=== PATIENT | female | born 1955 | race Caucasian/White ===

== ENCOUNTER 2017-02-21 23:44 | Inpatient (IN) ==
[2017-02-22] MEDS ORDERED: *HR* Morphine 2 MG/ML SYRINGE IVP PRN ×2 (03:51→13:45)
[2017-02-22] MEDS ORDERED: Ipratropium/Albuterol Neb 3 ML IH PRN (03:51)
[2017-02-22] MEDS ORDERED: Dextrose Gel 15 GM/37.5 ML TUBE PO PRN ×2 (03:52)
[2017-02-22] MEDS ORDERED: *HR* Dextrose 50 % in Water (Syg) 50 ML SYRINGE IVP PRN (03:52)
[2017-02-22] MEDS ORDERED: D5% in Water 1,000 ML IVC PRN (03:52)
[2017-02-22] MEDS ORDERED: Ondansetron 4 MG/2 ML VIAL IVP PRN (03:56)
[2017-02-22] MEDS ORDERED: Acetaminophen 325 MG TABLET PO PRN (03:56)
[2017-02-22] MEDS ORDERED: Naloxone 0.4 MG/ML INJ IVP PRN (03:56)
--- NOTE | 2017-02-22 04:01 | Internal Med History&Physical ---
Date of Encounter: 02/22/17 Time of Encounter: 03:59 Assessment and Plan (1) PRES (posterior reversible encephalopathy syndrome) Current visit: Yes Status: Acute Acute encephalopathy likely secondary to pres and UTI Order MRI of the brain, tight blood pressure control Omeprazole for GI prophylaxis and subcutaneous heparin for DVT prophylaxis. Patient will be admitted as inpatient, expected stay more than 20 minutes. Full code. Time spent on this admission 40 minutes (2) Seizure Current visit: Yes Status: Acute Resume [facility] consult Fall and seizure precautions Ativan as needed (3) Accelerated hypertension Current visit: Yes Status: Acute Continue amlodipine and propanolol, start hydralazine IV as needed (4) Diabetes Current visit: Yes Status: Acute Insulin sliding scale Qualifiers: Diabetes mellitus type: type 2 Diabetes mellitus complication status: without complication Diabetes mellitus terminal operations manager insulin use: with senior care use Qualified Code(s): E11.9 - Type 2 diabetes mellitus without complications ; Z79.4 - superintendent terminal (current) use of insulin; Z79.4 - superintendent terminal (current) use of insulin; Z79.4 - superintendent terminal (current) use of insulin; Z79.4 - superintendent terminal ( current) use of insulin (5) Chronic kidney disease, stage III (moderate) Current visit: Yes Status: Acute At baseline Continue Lasix (6) Delirium due to general medical condition Current visit: No Status: Acute (7) UTI (urinary tract infection) Current visit: No Status: Acute Start Rocephin Await culture report Qualifiers: Urinary tract infection type: acute cystitis Hematuria presence: without hematuria Qualified Code(s): N30.00 - Acute cystitis without hematuria Internal Medicine - H&P: HPI Chief complaint: Altered mental status and seizures Admitted From: Emergency Dept History of present illness: Ms. Becker is a 61 year old female with a past medical history of seizure disorder, press syndrome, diabetes type 2 insulin-dependent, came from [facility] where she was seen for confusion, apparently the patient became combative after having 3 seizures the first one very elderly in the morning witnessed by her . She is a very poor historian and does not remember what happened but is complaining of excruciating pain in the left hip. White blood cell count is 20.1 potassium 5.1 creatinine 1.97 glucose 152, urine analysis shows 50 white blood cells and moderate bacteria. CT scan of the head shows possible posterior reversible encephalopathy syndrome or acute edema, these would need to be confirmed with an MRI. During tox screen was positive for opiates oxycodone and benzodiazepines. Blood pressure was 167/97. Has been is not able to explain what exactly happened to the patient earlier today. Past Med Surg Social Fam HX - Past Medical History Medical history: arthritis, diabetes (Insulin-dependent), hyperlipidemia, hypertension, kidney stones, renal disease (Chronic kidney disease stage III), seizures, other (Nephrolithiasis, pres syndrome, hypertriglyceridemia, hyperlipidemia) Psychiatric history: no psych history - Past Surgical History Surgical History: cholecystectomy, other - Social History Smoking Status: Never smoker Smokeless Tobacco Status: No Alcohol use: none Drug use: none - Family History Brother Hx Family Endocrine Disorder: Yes (DM) Hx Family Neurologic Disorders: Yes (seizures) - Additional Family History Additional family history: Denies any family history Internal Medicine - H&P: Meds Amlodipine Besylate 5 mg PO DAILY 02/21/17 [History] Atorvastatin Calcium [Lipitor] 20 mg PO HS 02/21/17 [History] Furosemide [Lasix] 20 mg PO DAILY 02/21/17 [History] Gabapentin [Neurontin] 100 mg PO TID 02/21/17 [History] Gemfibrozil [Lopid] 600 mg PO BID 02/21/17 [History] HYDROcodone/Acet 10/325 mg [[place] 10-325 mg] 1 tab PO Q6HR 02/21/17 [History] Humalog 02/21/17 [History] Insulin Glargine,Hum.rec.anlog [Lantus Solostar] 70 unit SQ HS 02/21/17 [History ] LevETIRAcetam [Keppra] 1,000 mg PO BID 02/21/17 [History] OxyCODONE/APAP 5/325 [Percocet 5/325 MG] 1 tab PO Q6H 02/21/17 [History] Propranolol HCl 40 mg PO BID 02/21/17 [History] Ropinirole HCl [Requip] 1 mg PO HS 02/21/17 [History] Sennosides/Docusate Sodium [Stool Softener Tablet] 1 each PO BID 02/21/17 [ History] Sodium Bicarbonate 1,300 mg PO BID 02/21/17 [History] Vitamin B Complex Vit C No.4 [Super B Complex] 1 tab PO DAILY 02/21/17 [History] 3 Allergy/AdvReac Type Severity Reaction Status Date / Time No Known Allergies Allergy Verified 12/15/14 07:03 All Systems PM: A 10-system review of systems was performed and is negative for pertinent findings except as documented above in the HPI. Review of systems: Left hip pain, no shortness of breath, chest pain. Very weak. Other systems out of the 10 review liver negative. The patient does not remember falling - Constitutional Vitals: Temp Pulse Resp BP Pulse Ox 98.3 F 88 15 135/88 93 02/22/17 03:15 02/22/17 03:15 02/22/17 03:15 02/22/17 03:15 02/22/17 03:15 General appearance: Present: A&O X 3, morbidly obese - Head Head exam: Present: atraumatic, normocephalic - Eye Eye exam: Present: PERRL, conjuntiva pink, sclera anicteric Pupils: Present: PERRL - Neck Neck exam general surgery: Present: supple, trachea midline. Absent: lymphadenopathy Additional comments: Strabismus - Respiratory Respiratory exam: Present: CTAB. Absent: accessory muscle use, rales, rhonchi, wheezes - Cardiovascular Cardiovascular exam: Present: RRR, +S1, +S2. Absent: diastolic murmur, gallop, rubs, systolic murmur - GI/Abdominal GI/Abdominal exam: Present: distended, normal bowel sounds, soft, no peritoneal signs. Absent: tenderness - Extremities Exam Extremities exam: Present: warm, radial pulses palpable and symmetrical. Absent : calf tenderness, cyanotic, pedal edema - Neurological Exam Neurological exam: Present: CN II-XII intact, oriented X3, no focal deficits. Absent: pronater drift, facial droop, speech deficit - Skin Skin exam: Present: dry, intact
[2017-02-22] MEDS: *HR* HYDROcodone/Acet 10/325 mg TABLET PO PRN ×4 (04:37→22:48)
[2017-02-22] MEDS: *HR* LORazepam 2 MG/ML VIAL IVP PRN ×3 (04:37→23:55)
[2017-02-22] MEDS: cefTRIAXone 1,000 MG in Water for inj. (sterile) 20 ML 10 ML IVP SCH ×2 (04:37→20:45)
[2017-02-22] MEDS: Insulin LISPRO 300 UNITS/3 ML VIAL SQ SCH ×5 (04:56→21:24)
[2017-02-22] MEDS: *HR* Heparin 5,000 UNIT/ML VIAL SQ SCH ×2 (05:55→18:11)
[2017-02-22 08:20] LABS: Hematocrit 33.9 % (35.3-44.9); Hemoglobin 11.1 g/dL (11.5-15.4); Mean Corpuscular HGB Conc 32.7 g/dL (31.6-35.5); Mean Corpuscular Hemoglobin 28.3 pg (28.0-33.3); Mean Corpuscular Volume 86.5 fL (83.0-100.0); Mean Platelet Volume 11.7 fL (9.4-12.4); Platelet Count 324 K/mcL (140-400); Red Blood Count 3.92 M/mcL (3.82-4.97); Red Cell Distribution Width 17.3 % (11.5-14.5)
[2017-02-22] MEDS: Gabapentin 100 MG CAPSULE PO SCH ×3 (09:02→20:42)
[2017-02-22] MEDS: levETIRAcetam 250 MG TABLET PO SCH ×2 (09:02→20:42)
[2017-02-22] MEDS: amLODIPine 5 MG TABLET PO SCH (09:02)
[2017-02-22] MEDS: Furosemide 20 MG TABLET PO SCH (09:02)
--- NOTE | 2017-02-22 10:24 | Neurology - Consult Note ---
<Martine Ferrari - Last Filed: 02/22/17 10:19> Date of Encounter: 02/22/17 Time of Encounter: 10:19 Assessment and Plan (1) Seizure Current Visit: Yes Status: Acute multiple witnessed seizures after arrival to hospital. CT head showed bilateral encephalomalacia, with loss of reveles white matter differentiation, possible PRES syndrome vs. acute edema. Also shoed left occipital encephalomalacia. Etiology likely multifactorial secondary to missing medication doses, complicated by PRES. Plan: MRI brain pending resume Keppra fall and seizure precautions PRN benzodiazepine continue blood pressure control. (2) PRES (posterior reversible encephalopathy syndrome) Current Visit: Yes Status: Acute continue blood pressure control. History of Present Illness Chief complaint: seizure HPI: Ms. Becker is a 61 year old female with PMHx of seizure disorder, PRES syndrome, DM2, CKD. Patient arrived to [facility] yesterday as a transfer from [facility]. She was originally brought to the ER for confusion. Early that day, she had missed two doses of her Keppra. Throughout the day, she became progressively more confused and missed her blood pressure medications as well. patient was sitting in the chair and fell off the chair onto the floor. she was also unresponsive for some time. After arrival to the hospital, she had multiple witnessed seizures. patient today is alert and oriented x2 (person and place). she denies nausea, vomiting, diarrhea, fever, chills, chest pain, shortness of breath. she does report continued chronic left hip pain, and denies any further problems today. Past Med Surg Social Fam HX - Past Medical History Medical history: arthritis, diabetes (Insulin-dependent), hyperlipidemia, hypertension, kidney stones, renal disease (Chronic kidney disease stage III), seizures, other (Nephrolithiasis, pres syndrome, hypertriglyceridemia, hyperlipidemia) Psychiatric history: no psych history - Past Surgical History Surgical History: cholecystectomy, other - Social History Smoking Status: Never smoker Smokeless Tobacco Status: No Alcohol use: none Drug use: none - Family History Brother Hx Family Endocrine Disorder: Yes (DM) Hx Family Neurologic Disorders: Yes (seizures) Medications and Allergies Amlodipine Besylate 5 mg PO DAILY 02/21/17 [History] Atorvastatin Calcium [Lipitor] 20 mg PO HS 02/21/17 [History] Furosemide [Lasix] 20 mg PO DAILY 02/21/17 [History] Gabapentin [Neurontin] 100 mg PO TID 02/21/17 [History] Gemfibrozil [Lopid] 600 mg PO BID 02/21/17 [History] HYDROcodone/Acet 10/325 mg [[place] 10-325 mg] 1 tab PO Q6HR 02/21/17 [History] Insulin Glargine,Hum.rec.anlog [Lantus Solostar] 70 unit SQ HS 02/21/17 [History ] Insulin LISPRO [Humalog] 2 - 10 unit SQ TIDWM 02/21/17 [History] LevETIRAcetam [Keppra] 1,000 mg PO BID 02/21/17 [History] OxyCODONE/APAP 5/325 [Percocet 5/325 MG] 1 tab PO Q6H 02/21/17 [History] Propranolol HCl 40 mg PO BID 02/21/17 [History] Ropinirole HCl [Requip] 1 mg PO HS 02/21/17 [History] Sennosides/Docusate Sodium [Stool Softener Tablet] 1 each PO BID 02/21/17 [ History] Sodium Bicarbonate 1,300 mg PO BID 02/21/17 [History] Vitamin B Complex Vit C No.4 [Super B Complex] 1 tab PO DAILY 02/21/17 [History] Aspirin Enteric Coated [Aspirin EC] 81 mg PO DAILY 02/22/17 [History] 3 Allergy/AdvReac Type Severity Reaction Status Date / Time No Known Allergies Allergy Verified 12/15/14 07:03 All Systems: A 10-system review of systems was performed and is negative for pertinent findings except as documented above in the HPI. - Constitutional Constitutional ROS IM: as per HPI Physical Examination - Vital Signs Vital Signs: Initial Vital Signs Temp Pulse Resp BP Pulse Ox 97.9 F 88 16 158/80 97 02/22/17 01:39 02/22/17 01:39 02/22/17 01:39 02/22/17 01:39 02/22/17 01:39 - Constitutional General appearance: comfortable, other (obese, no acute distress. ) - Neurologic Sensorimotor examination: intact Motor examination - right side: 3/5: deltoids, biceps, thread pulling machine attendant, hip flexors Motor examination - left side: 3/5: deltoids, biceps, hip flexors, thread pulling machine attendant Detailed sensory examination: intact Reflexes: Brachioradialis: 1+, Patella: 1+, Achilles: 1+ Mental Status Examination: awake, alert, oriented to person, oriented to place, follows commands appropriately, no aphasia, lethargic Cranial nerve examination: PERRL Results - Laboratory Findings CBC and BMP: 02/22/17 07:14 Abnormal lab findings: Abnormal lab results WBC 19.0 K/mcL (4.3-11.1) H 02/22/17 07:14 Hgb 11.1 g/dL (11.5-15.4) L 02/22/17 07:14 Hct 33.9 % (35.3-44.9) L 02/22/17 07:14 RDW 17.3 % (11.5-14.5) H 02/22/17 07:14 Consult Discharge Plan - Plan Referrals: NONE,PCP [Primary Care Provider] - <Bridger Kimball - Last Filed: 02/22/17 17:25> Date of Encounter: 02/22/17 Time of Encounter: 17:10 Assessment and Plan (1) Seizure Current Visit: Yes Status: Acute It seems that this patient is approaching her normal baseline. I agree murmur likely dealing with breakthrough seizures secondary to the urinary tract infection as well as medical noncompliance she has missed a few doses of her Keppra.. MRI scan of the brain although abnormal does not reveal any changes in comparison to the previous MRI study. I see no metabolic derangement or evidence of central nervous system infection. No evidence of an acute vascular process. I would recommend simply resuming her Keppra at 1000 mg twice a day. Also recommend urology assessment she is here. My pleasure to follow-up with her in my office as an outpatient after she is discharged. History of Present Illness HPI: Clemente reviewed, patient was seen and examined independently. Case was discussed with Dr. Ferrari. In addition to the history mentioned above, the patient has a history of recurrent urinary tract infections. It seems that she also has a history of medical noncompliance, her gives the majority of the history. Apparently she has missed follow-ups with a neurologist as well as with a urologist. Her states that her mental status is improved but not quite back to her normal baseline. MRI scan of the brain completed today reveals encephalomalacia in the parietal lobes bilaterally as well as the left occipital lobe. This is unchanged in comparison to previous brain scans. Her seizure activity generally consist of turning her head toward the left with eyes deviated toward the left. states that she jerks a few times. She has had breakthrough seizures in the past associated with urinary tract infections. All Systems: A 10-system review of systems was performed and is negative for pertinent findings except as documented above in the HPI. Review of Systems: 10 point review of systems is consistent with a history of present illness otherwise negative. Physical Examination - Vital Signs Vital Signs: Initial Vital Signs Temp Pulse Resp BP Pulse Ox 97.9 F 88 16 158/80 97 02/22/17 01:39 02/22/17 01:39 02/22/17 01:39 02/22/17 01:39 02/22/17 01:39 - Constitutional General appearance: other - Neurologic Detailed motor examination: other (No focal or lateralized deficit of the upper extremities. She does have giveaway weakness of the left lower extremity secondary to chronic left hip problems. She has normal strength bulk and tone of the right lower extremity. 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.) Results - Laboratory Findings CBC and BMP: 02/22/17 07:14 02/22/17 09:44 Abnormal lab findings: Abnormal lab results WBC 19.0 K/mcL (4.3-11.1) H 02/22/17 07:14 Hgb 11.1 g/dL (11.5-15.4) L 02/22/17 07:14 Hct 33.9 % (35.3-44.9) L 02/22/17 07:14 RDW 17.3 % (11.5-14.5) H 02/22/17 07:14 Chloride 111 mEq/L (98-107) H 02/22/17 09:44 Carbon Dioxide 22 mEq/L (23-29) L 02/22/17 09:44 BUN 41 mg/dL (6-20) H 02/22/17 09:44 Creatinine 1.63 mg/dL (0.60-1.20) H 02/22/17 09:44 Est GFR ( Amer) 39 (> 60) L 02/22/17 09:44 Est GFR (Non-Af Amer) 32 (> 60) L 02/22/17 09:44 Glucose 155 mg/dL (70-105) H 02/22/17 09:44 Calculated Osmolality 307 (280-300) H 02/22/17 09:44
[2017-02-22 11:40] LABS: Calcium 9.6 mg/dL (8.6-10.3); Potassium 3.7 mEq/L (3.5-5.1)
[2017-02-22] MEDS: Saline Nasal Spray 44 ML BOTTLE NS PRN ×4 (14:31→23:02)
--- NOTE | 2017-02-22 19:06 | Event Note ---
Date of Encounter: 02/22/17 Time of Encounter: 14:00 61 y/o female with hx seizures. Seen and examined at bedside. Say she feels okay and wants to be left alone. at bedside and says mentation improved but not back to baseline 1. Encephalopathy: in the setting of breakthrough seizures and UTI. Mentation improved but not back to baseline per . Plan as noted below. 2. Seizure disorder: per hx. Multiple witnessed seizures after arrival to hospital. CT head showed bilateral encephalomalacia, with loss of reveles white matter differentiation, possible PRES syndrome vs. acute edema. Evaluated by Neurology who suspects multifactorial secondary to missing medication doses, complicated by PRES. Cont Keppra, PRN benzodiazepine, Brain MRI pending 3. UTI: outside hospital UA indicative of UTI. Cont IV rocephin. Follow urine cx 4. Leukocytosis: WBC 19K, possibly reactive. UA indicative of UTI however does not appear acute or toxic. No tachycardia, no hypotension. Lactic acid, blood cx pending. Cont IV ATB for UTI as noted above
[2017-02-22] MEDS: rOPINIRole 1 MG TABLET PO SCH (20:40)
[2017-02-22] MEDS: Insulin DETEMIR 100 UNIT/ML X5UNITS SQ SCH (22:49)
[2017-02-23] MEDS ORDERED: *HR* OxyCODONE/APAP 5/325 TABLET PO ONE (03:36)
[2017-02-23] MEDS: Saline Nasal Spray 44 ML BOTTLE NS PRN ×2 (04:25→18:47)
[2017-02-23] MEDS: *HR* Heparin 5,000 UNIT/ML VIAL SQ SCH ×2 (05:48→18:47)
[2017-02-23 06:47] LABS: Hematocrit 30.1 % (35.3-44.9); Mean Corpuscular HGB Conc 31.2 g/dL (31.6-35.5); Mean Corpuscular Hemoglobin 27.9 pg (28.0-33.3); Mean Corpuscular Volume 89.3 fL (83.0-100.0); Mean Platelet Volume 11.5 fL (9.4-12.4); Platelet Count 262 K/mcL (140-400); Red Blood Count 3.37 M/mcL (3.82-4.97); Red Cell Distribution Width 17.4 % (11.5-14.5)
[2017-02-23 06:52] LABS: Hemoglobin 9.4 g/dL (11.5-15.4)
[2017-02-23 06:56] LABS: Calcium 9.2 mg/dL (8.6-10.3)
[2017-02-23] MEDS: Insulin LISPRO 300 UNITS/3 ML VIAL SQ SCH ×4 (08:41→20:35)
[2017-02-23] MEDS: Furosemide 20 MG TABLET PO SCH (08:42)
[2017-02-23] MEDS: amLODIPine 5 MG TABLET PO SCH (08:42)
[2017-02-23] MEDS: Gabapentin 100 MG CAPSULE PO SCH ×3 (08:42→20:31)
[2017-02-23] MEDS: levETIRAcetam 250 MG TABLET PO SCH ×2 (08:42→20:31)
[2017-02-23] MEDS: *HR* HYDROcodone/Acet 10/325 mg TABLET PO PRN ×2 (08:43→13:25)
--- NOTE | 2017-02-23 14:15 | Internal Med Progress Note ---
Date of Encounter: 02/23/17 Time of Encounter: 14:00 - Assessment and plan (1) Acute encephalopathy Current Visit: Yes Status: Acute Assessment and plan: seems to be improving signifcantly. possibly from UTI vs PRES vs seizure. c/w abx. c/w Keppra. MRI brain noted. neuro checks (2) Seizure Current Visit: Yes Status: Acute Assessment and plan: On Keppra. No seizure activities noted while on nursing floor. (3) PRES (posterior reversible encephalopathy syndrome) Current Visit: Yes Status: Acute Assessment and plan: Neurology consult. c/w neuro checks. BP control (4) Accelerated hypertension Current Visit: Yes Status: Acute Assessment and plan: c/w BP control. BP seems to be controlled now. c/w inderal, lasix, novasc. (5) Diabetes Current Visit: Yes Status: Acute Assessment and plan: c/w levemir 70 units HS. c/w SSI. c/w accu-cheks Qualifiers: Diabetes mellitus type: type 2 Diabetes mellitus complication status: without complication Diabetes mellitus terminal carman insulin use: with senior care use Qualified Code(s): E11.9 - Type 2 diabetes mellitus without complications ; Z79.4 - superintendent terminal (current) use of insulin; Z79.4 - skilled nursing (current) use of insulin; Z79.4 - superintendent terminal (current) use of insulin; Z79.4 - superintendent terminal ( current) use of insulin (6) Chronic kidney disease, stage III (moderate) Current Visit: Yes Status: Acute Assessment and plan: stable. around baseline (7) DVT prophylaxis Current Visit: Yes Status: Acute Assessment and plan: heparin - Subjective Interval history: No acute events. Feels well. Confusion seems to be clearing. Afebrile. BP is stable - Constitutional Vitals: Temp Pulse Resp BP Pulse Ox 98.2 F 68 20 115/72 96 02/23/17 12:04 02/23/17 12:04 02/23/17 12:04 02/23/17 12:04 02/23/17 12:04 General appearance: Present: A&O X 3, morbidly obese Exam: GEN: NAD. A/O x2. Was able to tell me name, place, month but thought it was 2016 CVS: RRR. S1, S2, No m/r/g RESP: CTAB ABD: Soft, NT, ND, +BS EXT: No edema. 2+ DP NEURO: Nonfocal Internal Medicine: Result - Labs CBC & Chem 7: 02/23/17 06:25 02/23/17 06:25 Labs: Short CBC 02/23/17 Range/Units 06:25 WBC 11.8 H (4.3-11.1) K/mcL Hgb 9.4 L D (11.5-15.4) g/dL Hct 30.1 L (35.3-44.9) % Plt Count 262 (140-400) K/mcL BMP 02/23/17 06:25 Sodium 143 Potassium 4.0 Chloride 107 Carbon Dioxide 23 BUN 49 H Creatinine 1.94 H Glucose 201 H Calcium 9.2 - Impressions Impressions Brain MRI 02/22/17 03:52 IMPRESSION: 1. Unchanged chronic encephalomalacia in the bilateral parietal and left occipital lobes. 2. Severely motion degraded MRI without obvious acute abnormality. D/ / 02/22/2017 14:35:09 Jose Cortez MD / sathya Interpreting Provider: Jose Cortez MD Consult Discharge Plan - Plan Referrals: NONE,PCP [Primary Care Provider] -
--- NOTE | 2017-02-23 14:46 | Neurology Progress Note ---
Date of Encounter: 02/23/17 Time of Encounter: 14:44 Assessment and Plan (1) Seizure Current Visit: Yes Status: Acute Breakthrough seizure. Compliance with antiepileptic seizure medications was stressed. She should be taking levetiracetam 1000 mg twice a day. Seizure precautions were discussed. She does not drive. They intend to follow-up with a neurologist in the [facility] program. I will reevaluate her at your request. Subjective Interval history: The chart was reviewed, the patient was seen and examined. Her is present with her. They both agree that she is back to her baseline from a cognitive perspective. She has not had any further seizure activity overnight. WBCs have declined significantly. I continue to suspect breakthrough seizure secondary to noncompliance along with urinary tract infection. Objective - Constitutional Vitals: Temp Pulse Resp BP Pulse Ox 98.2 F 68 20 115/72 96 02/23/17 12:04 02/23/17 12:04 02/23/17 12:04 02/23/17 12:04 02/23/17 12:04 - Neurological Exam Sensorimotor examination: Present: intact Motor Examination: Present: other (No focal or lateralized deficit of the upper extremities. She does have giveaway weakness of the left lower extremity secondary to chronic left hip problems. She has normal strength bulk and tone of the right lower extremity. 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.) Results - Laboratory Findings CBC and BMP: 02/23/17 06:25 02/23/17 06:25 Abnormal lab findings: Abnormal lab results WBC 11.8 K/mcL (4.3-11.1) H 02/23/17 06:25 RBC 3.37 M/mcL (3.82-4.97) L 02/23/17 06:25 Hgb 9.4 g/dL (11.5-15.4) L D 02/23/17 06:25 Hct 30.1 % (35.3-44.9) L 02/23/17 06:25 MCH 27.9 pg (28.0-33.3) L 02/23/17 06:25 MCHC 31.2 g/dL (31.6-35.5) L 02/23/17 06:25 RDW 17.4 % (11.5-14.5) H 02/23/17 06:25 BUN 49 mg/dL (6-20) H 02/23/17 06:25 Creatinine 1.94 mg/dL (0.60-1.20) H 02/23/17 06:25 Est GFR ( Amer) 32 (> 60) L 02/23/17 06:25 Est GFR (Non-Af Amer) 26 (> 60) L 02/23/17 06:25 Glucose 201 mg/dL (70-105) H 02/23/17 06:25 POC Glucose 142 (58-89) H 02/22/17 21:03 Calculated Osmolality 315 (280-300) H 02/23/17 06:25 Consult Discharge Plan - Plan Referrals: NONE,PCP [Primary Care Provider] -
[2017-02-23] MEDS: *HR* HYDROcodone/Acet 10/325 mg TABLET PO SCH ×3 (16:05→23:57)
[2017-02-23] MEDS: rOPINIRole 1 MG TABLET PO SCH (20:30)
[2017-02-23] MEDS: cefTRIAXone 1,000 MG in Water for inj. (sterile) 20 ML 10 ML IVP SCH (20:32)
[2017-02-23] MEDS: Insulin DETEMIR 100 UNIT/ML X5UNITS SQ SCH (20:36)
[2017-02-23] MEDS: *HR* LORazepam 2 MG/ML VIAL IVP PRN (22:15)
[2017-02-24] MEDS: *HR* LORazepam 2 MG/ML VIAL IVP PRN (02:26)
[2017-02-24] MEDS: *HR* HYDROcodone/Acet 10/325 mg TABLET PO SCH ×3 (04:48→12:33)
[2017-02-24 04:54] LABS: Hematocrit 31.1 % (35.3-44.9); Hemoglobin 9.6 g/dL (11.5-15.4); Immature Granulocytes % 0.4 % (0-4); Lymphocytes % 38.8 %; Mean Corpuscular HGB Conc 30.9 g/dL (31.6-35.5); Mean Corpuscular Hemoglobin 28.1 pg (28.0-33.3); Mean Corpuscular Volume 90.9 fL (83.0-100.0); Mean Platelet Volume 11.9 fL (9.4-12.4); Monocytes % 6.2 %; Platelet Count 269 K/mcL (140-400); Red Blood Count 3.42 M/mcL (3.82-4.97); Red Cell Distribution Width 17.3 % (11.5-14.5); Segmented Neutrophils % 51.7 %
[2017-02-24 04:55] LABS: Basophils % 0.2 %; Eosinophils # 0.3 K/mcL (0.0-0.6); Eosinophils % 2.7 %; Lymphocytes # 4.2 K/mcL (0.6-4.6); Monocytes # 0.7 K/mcL (0.0-1.3); Neutrophils # 5.6 K/mcL (1.6-8.9)
[2017-02-24 05:18] LABS: Potassium 3.8 mEq/L (3.5-5.1)
[2017-02-24] MEDS: *HR* Heparin 5,000 UNIT/ML VIAL SQ SCH (06:10)
[2017-02-24 06:45] VITALS: BP 114/74
[2017-02-24] MEDS: Insulin LISPRO 300 UNITS/3 ML VIAL SQ SCH ×2 (09:00→12:33)
[2017-02-24] MEDS: levETIRAcetam 250 MG TABLET PO SCH (09:01)
[2017-02-24] MEDS: amLODIPine 5 MG TABLET PO SCH (09:02)
[2017-02-24] MEDS: Furosemide 20 MG TABLET PO SCH (09:02)
[2017-02-24] MEDS: Gabapentin 100 MG CAPSULE PO SCH (09:02)
--- NOTE | 2017-02-24 09:28 | Discharge Summary ---
Date of Encounter: 02/24/17 Time of Encounter: 09:26 - Discharge Diagnosis (1) Acute encephalopathy Priority: Primary Status: Acute (2) Seizure Priority: Primary Status: Acute (3) PRES (posterior reversible encephalopathy syndrome) Priority: Primary Status: Acute (4) Accelerated hypertension Priority: Primary Status: Acute (5) Diabetes Priority: Secondary Status: Acute Qualifiers: Diabetes mellitus type: type 2 Diabetes mellitus complication status: without complication Diabetes mellitus [employer] insulin use: with shelter use Qualified Code(s): E11.9 - Type 2 diabetes mellitus without complications ; 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; Z79.4 - jail (current) use of insulin; Z79.4 - jail (current) use of insulin; 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 (6) Chronic kidney disease, stage III (moderate) Priority: Secondary Status: Acute - Discharge Medications Home Medications: Amlodipine Besylate 5 mg PO DAILY 02/21/17 [History] Atorvastatin Calcium [Lipitor] 20 mg PO HS 02/21/17 [History] Furosemide [Lasix] 20 mg PO DAILY 02/21/17 [History] Gabapentin [Neurontin] 100 mg PO TID 02/21/17 [History] Gemfibrozil [Lopid] 600 mg PO BID 02/21/17 [History] HYDROcodone/Acet 10/325 mg [Velpen 10-325 mg] 1 tab PO Q6HR 02/21/17 [History] Insulin Glargine,Hum.rec.anlog [Lantus Solostar] 70 unit SQ HS 02/21/17 [History ] Insulin LISPRO [Humalog] 2 - 10 unit SQ TIDWM 02/21/17 [History] LevETIRAcetam [Keppra] 1,000 mg PO BID 02/21/17 [History] OxyCODONE/APAP 5/325 [Percocet 5/325 MG] 1 tab PO Q6H 02/21/17 [History] Propranolol HCl 40 mg PO BID 02/21/17 [History] Ropinirole HCl [Requip] 1 mg PO HS 02/21/17 [History] Sennosides/Docusate Sodium [Stool Softener Tablet] 1 each PO BID 02/21/17 [ History] Sodium Bicarbonate 1,300 mg PO BID 02/21/17 [History] Vitamin B Complex Vit C No.4 [Super B Complex] 1 tab PO DAILY 02/21/17 [History] Aspirin Enteric Coated [Aspirin EC] 81 mg PO DAILY 02/22/17 [History] Allergies/Adverse Reactions: 3 Allergy/AdvReac Type Severity Reaction Status Date / Time No Known Allergies Allergy Verified 12/15/14 07:03 Procedures/tests Complete & Pending: Procedures Performed prior 72 hours Category Date Time Status MR head/brain wo con [MR] Routine MRI 02/22/17 03:52 Completed Date of admission: 02/22/17 03:56 Primary care physician: PCP NONE Consults: 02/22/17 03:55 Consult to Neurology [CONS] Routine Consulting Provider: [facility] Reason for Consult: seizures Call Completed: No 02/23/17 13:49 Consult to Physical Therapy [CONS] Routine Comment: Evaluate, develop and implement POC Reason for Consult: PT eval - Patient Status Disposition: Home, Self-Care Condition: Fair Overall status at discharge: patient is progressing back to baseline - Discharge Instructions Instructions: Diabetes Mellitus Type 2 in Adults (DC), Hepatic Encephalopathy ( DC) Follow Up With: NONE,PCP [Primary Care Provider] - (We have requested an appt with Family Medicine. They will call you within 24 hours. Otherwise you may call [phone] for assistance with finding a primary care. ) - Diet and Activity Activity: resume usual activities as tolerated Diet: diabetic diet Hospital course: Ms. Becker is a 61 year old female with a past medical history of seizure disorder, press syndrome, diabetes type 2 insulin-dependent, came from [facility] where she was seen for confusion with suspected seizure activities noted by her as well by the ED staff. White blood cell count is 20.1 potassium 5.1 creatinine 1.97 glucose 152, urine analysis shows 50 white blood cells and moderate bacteria. CT scan of the head shows possible posterior reversible encephalopathy syndrome . MRI of brain followed showed unchanged chronic encephalomalacia in the bilateral parietal and left occipital lobes. She was admitted to the hospitalist service with a consult to neurology suspected this could be PRES. they continued her on her antiseizure medication and recommended blood pressure control. During tox screen was positive for opiates oxycodone and benzodiazepines. She did well and she was hospitalized and was back to baseline. She will follow up with neurology and her primary care physician. She was discharged on 02/24/2017. - Time Spent with Patient Total time spent providing and/or coordinating discharge services: Greater than 30 minutes - Constitutional Vitals: Temp Pulse Resp BP Pulse Ox 98 F 65 16 114/74 96 02/24/17 06:43 02/24/17 06:43 02/24/17 06:43 02/24/17 06:43 02/24/17 06:43 General appearance: Present: A&O X 3, morbidly obese Exam: GEN: NAD CVS: RRR. S1, S2, No m/r/g RESP: CTAB ABD: Soft, NT, ND, +BS EXT: No edema. 2+ DP. No rashes NEURO: Nonfocal
== END 2017-02-24 12:42 | disposition home or self-care (01) | DRG 463 ==
LOC: 3BNU
PROVIDERS: ADMIT Internal Medicine; ATTEND Registered Nurse

== ENCOUNTER 2019-01-01 05:40 | Inpatient (IN) ==
[2019-01-01] MEDS ORDERED: Acetaminophen 325 MG TABLET PO PRN (11:08)
[2019-01-01] MEDS ORDERED: Naloxone 0.4 MG/ML INJ IVP PRN (11:08)
[2019-01-01] MEDS ORDERED: *HR* Dextrose 50 % in Water (Syg) 50 ML SYRINGE IVP PRN (11:19)
[2019-01-01] MEDS ORDERED: Dextrose Gel 15 GM/37.5 ML TUBE PO PRN ×2 (11:19)
[2019-01-01] MEDS ORDERED: D5% in Water 1,000 ML IVC PRN (11:19)
[2019-01-01] MEDS: Insulin LISPRO 300 UNITS/3 ML VIAL SQ SCH ×3 (12:36→20:51)
[2019-01-01] MEDS: 0.9 % Sodium Chloride 1,000 ML IVC SCH (12:37)
[2019-01-01] MEDS ORDERED: Aminoglycoside Consult 1 EACH MC ONE (13:29)
[2019-01-01] MEDS: Piperacillin/Tazobactam 3.375 GM in 0.9 % Sodium Chloride Mini Bag 100 ML IVPB SCH (17:08)
[2019-01-01 18:26] LABS: Adenovirus Not Detected (Not Detect); Bordetella Pertussis Not Detected (Not Detect); Chlamydophila pneumoniae Not Detected (Not Detect); Coronavirus 229E Not Detected (Not Detect); Coronavirus HKU1 Not Detected (Not Detect); Coronavirus NL63 Not Detected (Not Detect); Coronavirus OC43 Not Detected (Not Detect); Human Metapneumovirus Not Detected (Not Detect); Human Rhinovirus/Enterovirus DETECTED (Not Detect); Influenza A Subtype 2009 H1 Not Detected (Not Detect); Influenza A Untypeable Not Detected (Not Detect); Influenza B Not Detected (Not Detect); Mycoplasma pneumoniae Not Detected (Not Detect); Parainfluenza Virus 1 Not Detected (Not Detect); Parainfluenza Virus 2 Not Detected (Not Detect); Parainfluenza Virus 3 Not Detected (Not Detect); Parainfluenza Virus 4 Not Detected (Not Detect); Respiratory Syncytial Virus Not Detected (Not Detect)
[2019-01-01] MEDS: Insulin DETEMIR 100 UNIT/ML X5UNITS SQ SCH (20:52)
[2019-01-02] MEDS ORDERED: Levalbuterol Neb 1.25 MG/3 ML IH ONE (00:42)
[2019-01-02] MEDS ORDERED: Acetaminophen IV 1,000 MG/100 ML INFUS..BTL IVPB ONE (00:44)
[2019-01-02] MEDS: 0.9 % Sodium Chloride 1,000 ML IVC SCH (01:29)
[2019-01-02] MEDS ORDERED: 0.9 % Sodium Chloride Mini Bag 100 ML ONE (01:30)
[2019-01-02] MEDS: Piperacillin/Tazobactam 3.375 GM in 0.9 % Sodium Chloride Mini Bag 100 ML IVPB SCH ×3 (01:31→17:05)
[2019-01-02 06:44] LABS: Basophils % 0.3 %; Eosinophils # 0.2 K/mcL (0.0-0.6); Eosinophils % 1.7 %; Hematocrit 23.5 % (35.3-44.9); Hemoglobin 7.4 g/dL (11.5-15.4); Immature Granulocytes % 4.9 % (0-4); Lymphocytes # 3.2 K/mcL (0.6-4.6); Lymphocytes % 34.2 %; Mean Corpuscular HGB Conc 31.5 g/dL (31.6-35.5); Mean Corpuscular Hemoglobin 30.6 pg (28.0-33.3); Mean Corpuscular Volume 97.1 fL (83.0-100.0); Mean Platelet Volume 10.7 fL (9.4-12.4); Monocytes # 0.8 K/mcL (0.0-1.3); Monocytes % 8.9 %; Neutrophils # 4.7 K/mcL (1.6-8.9); Platelet Count 188 K/mcL (140-400); Red Blood Count 2.42 M/mcL (3.82-4.97); Red Cell Distribution Width 15.9 % (11.5-14.5); White Blood Count 9.3 K/mcL (4.3-11.1)
[2019-01-02 06:50] LABS: Calcium 9.8 mg/dL (8.6-10.3); Magnesium 1.9 mg/dL (1.6-2.6); Potassium 4.3 mEq/L (3.5-5.1)
[2019-01-02] MEDS ORDERED: Vancomycin (wt based) 1,000 MG VIAL IVPB SCH (08:00)
[2019-01-02] MEDS ORDERED: levoFLOXacin 750 MG/150 ML 750 MG/150 ML BAG IVPB ONE (08:15)
[2019-01-02] MEDS ORDERED: *HR* HYDROcodone/Acet 5/325 mg TABLET PO PRN (09:27)
[2019-01-02] MEDS: levETIRAcetam 250 MG TABLET PO SCH ×2 (09:41→20:36)
[2019-01-02] MEDS: Insulin LISPRO 300 UNITS/3 ML VIAL SQ SCH ×4 (09:42→20:47)
[2019-01-02] MEDS ORDERED: [UNRECOGNIZED DRUG - OTHER] PO PRN (11:57)
[2019-01-02] MEDS ORDERED: NON-FORMULARY MEDICATION 1 EACH EACH (Na Phos,M-B/Na Phos,Di-Ba [Fleet Enema Extra] 230 ML RC PRN (11:57)
[2019-01-02] MEDS ORDERED: Bisacodyl 10 MG RECTAL SUPPOSITORY RC PRN (11:57)
[2019-01-02] MEDS ORDERED: ALUMINUM HYDROXIDE PO PRN (11:57)
[2019-01-02] MEDS ORDERED: MAGNESIUM HYDROXIDE PO PRN (11:57)
[2019-01-02] MEDS ORDERED: Mag Hydrox/Al Hydrox/Simeth 30 ML UDC PO PRN (12:11)
[2019-01-02] MEDS: amLODIPine 5 MG TABLET PO SCH (13:43)
[2019-01-02] MEDS: Sennosides/Docusate Sodium TABLET PO SCH ×2 (13:43→20:36)
[2019-01-02] MEDS: Divalproex (12 HR) 500 MG TABLET PO SCH ×2 (13:46→20:36)
[2019-01-02] MEDS: Gabapentin 100 MG CAPSULE PO SCH (20:36)
[2019-01-02] MEDS: Insulin DETEMIR 100 UNIT/ML X5UNITS SQ SCH (20:47)
[2019-01-02] MEDS ORDERED: Bisacodyl 10 MG RECTAL SUPPOSITORY RC ONE (21:00)
[2019-01-02] MEDS ORDERED: CALCIUM ACETATE 667 MG PO SCH (21:00)
[2019-01-03] MEDS: Piperacillin/Tazobactam 3.375 GM in 0.9 % Sodium Chloride Mini Bag 100 ML IVPB SCH ×3 (01:05→15:44)
[2019-01-03] MEDS ORDERED: levoFLOXacin 750 MG/150 ML 750 MG/150 ML BAG IVPB SCH ×2 (04:00→09:00)
[2019-01-03] MEDS: *HR* OxyCODONE Oral Soln 5 MG/5 ML UD.LIQ PO PRN (04:44)
[2019-01-03 04:53] LABS: Basophils % 0.3 %; Eosinophils # 0.3 K/mcL (0.0-0.6); Eosinophils % 2.5 %; Hematocrit 25.7 % (35.3-44.9); Hemoglobin 7.6 g/dL (11.5-15.4); Immature Granulocytes % 7.3 % (0-4); Lymphocytes # 3.5 K/mcL (0.6-4.6); Lymphocytes % 35.1 %; Mean Corpuscular HGB Conc 29.6 g/dL (31.6-35.5); Mean Corpuscular Hemoglobin 30.4 pg (28.0-33.3); Mean Corpuscular Volume 102.8 fL (83.0-100.0); Mean Platelet Volume 10.1 fL (9.4-12.4); Monocytes # 0.8 K/mcL (0.0-1.3); Neutrophils # 4.7 K/mcL (1.6-8.9); Platelet Count 188 K/mcL (140-400); Red Cell Distribution Width 15.8 % (11.5-14.5); Segmented Neutrophils % 46.8 %
[2019-01-03 05:11] LABS: Calcium 10.4 mg/dL (8.6-10.3); Potassium 4.8 mEq/L (3.5-5.1)
[2019-01-03] MEDS: amLODIPine 5 MG TABLET PO SCH (08:09)
[2019-01-03] MEDS: levETIRAcetam 250 MG TABLET PO SCH ×2 (08:09→20:21)
[2019-01-03] MEDS: Divalproex (12 HR) 500 MG TABLET PO SCH ×3 (08:10→20:22)
[2019-01-03] MEDS: Azithromycin 500 MG in 0.9 % Sodium Chloride 250 ML IVPB SCH (08:10)
[2019-01-03] MEDS: Insulin LISPRO 300 UNITS/3 ML VIAL SQ SCH ×4 (08:10→20:19)
[2019-01-03] MEDS: Sennosides/Docusate Sodium TABLET PO SCH ×2 (08:10→20:22)
[2019-01-03] MEDS ORDERED: Azithromycin 500 MG in 0.9 % Sodium Chloride 250 ML IVPB SCH (11:00)
[2019-01-03] MEDS: Calcium Acetate 667 MG CAPSULE PO SCH (11:39)
[2019-01-03] MEDS ORDERED: Albuterol 2.5 MG/3 ML NEBULIZER IH PRN (13:49)
[2019-01-03] MEDS: Ipratropium/Albuterol Neb 3 ML IH SCH ×3 (15:40→23:04)
[2019-01-03] MEDS: *HR* Heparin 5,000 UNIT/ML VIAL SQ SCH (17:06)
[2019-01-03] MEDS: Benzonatate 100 MG CAPSULE PO PRN (17:18)
[2019-01-03] MEDS: Lactulose Oral Soln 20 GM/30 ML UDC PO SCH (20:19)
[2019-01-03] MEDS: Insulin DETEMIR 100 UNIT/ML X5UNITS SQ SCH (20:22)
[2019-01-03] MEDS: Gabapentin 100 MG CAPSULE PO SCH (20:22)
[2019-01-04] MEDS: Piperacillin/Tazobactam 3.375 GM in 0.9 % Sodium Chloride Mini Bag 100 ML IVPB SCH ×2 (00:32→09:42)
[2019-01-04] MEDS: Ipratropium/Albuterol Neb 3 ML IH SCH ×5 (03:30→19:44)
[2019-01-04 03:31] LABS: Hematocrit 24.2 % (35.3-44.9); Hemoglobin 7.5 g/dL (11.5-15.4); Mean Corpuscular Hemoglobin 30.7 pg (28.0-33.3); Mean Corpuscular Volume 99.2 fL (83.0-100.0); Mean Platelet Volume 10.4 fL (9.4-12.4); Platelet Count 235 K/mcL (140-400); Red Blood Count 2.44 M/mcL (3.82-4.97); Red Cell Distribution Width 15.7 % (11.5-14.5)
[2019-01-04 03:55] LABS: Calcium 10.4 mg/dL (8.6-10.3); Eosinophils # 0.2 K/mcL (0.0-0.6); Lymphocytes # 2.4 K/mcL (0.6-4.6); Monocytes # 0.8 K/mcL (0.0-1.3); Potassium 4.5 mEq/L (3.5-5.1)
[2019-01-04 03:56] LABS: Platelet Estimate Normal (Normal)
[2019-01-04] MEDS: *HR* Heparin 5,000 UNIT/ML VIAL SQ SCH ×2 (06:33→16:57)
[2019-01-04] MEDS: levETIRAcetam 250 MG TABLET PO SCH ×2 (08:30→21:48)
[2019-01-04] MEDS: Insulin LISPRO 300 UNITS/3 ML VIAL SQ SCH ×4 (08:30→21:50)
[2019-01-04] MEDS: Divalproex (12 HR) 500 MG TABLET PO SCH ×3 (08:30→21:47)
[2019-01-04] MEDS: Sennosides/Docusate Sodium TABLET PO SCH ×2 (08:31→21:46)
[2019-01-04] MEDS: amLODIPine 5 MG TABLET PO SCH (08:31)
[2019-01-04] MEDS: Azithromycin 500 MG in 0.9 % Sodium Chloride 250 ML IVPB SCH (08:31)
[2019-01-04] MEDS: Lactulose Oral Soln 20 GM/30 ML UDC PO SCH ×2 (08:31→21:48)
[2019-01-04] MEDS: Calcium Acetate 667 MG CAPSULE PO SCH (12:11)
[2019-01-04] MEDS: Insulin DETEMIR 100 UNIT/ML X5UNITS SQ SCH ×2 (12:42→21:47)
[2019-01-04] MEDS: Amoxicillin/Clavulanate 500 MG TABLET PO SCH (16:57)
[2019-01-04] MEDS: Gabapentin 100 MG CAPSULE PO SCH (21:47)
[2019-01-04] MEDS: *HR* OxyCODONE Oral Soln 5 MG/5 ML UD.LIQ PO PRN (23:08)
[2019-01-05] MEDS: Ipratropium/Albuterol Neb 3 ML IH SCH ×5 (00:07→16:42)
[2019-01-05] MEDS ORDERED: Hydrocortisone Rectal 2.5% CRM 28 GM TUBE RC PRN (02:40)
[2019-01-05 05:41] LABS: Basophils # 0.1 K/mcL (0.0-0.2); Basophils % 0.5 %; Eosinophils # 0.3 K/mcL (0.0-0.6); Eosinophils % 3.2 %; Hematocrit 24.8 % (35.3-44.9); Hemoglobin 7.7 g/dL (11.5-15.4); Immature Granulocytes % 4.7 % (0-4); Lymphocytes # 3.8 K/mcL (0.6-4.6); Lymphocytes % 40.8 %; Mean Corpuscular Hemoglobin 30.7 pg (28.0-33.3); Mean Corpuscular Volume 98.8 fL (83.0-100.0); Mean Platelet Volume 10.1 fL (9.4-12.4); Monocytes # 0.5 K/mcL (0.0-1.3); Monocytes % 5.7 %; Neutrophils # 4.2 K/mcL (1.6-8.9); Platelet Count 238 K/mcL (140-400); Red Blood Count 2.51 M/mcL (3.82-4.97); Red Cell Distribution Width 15.6 % (11.5-14.5); Segmented Neutrophils % 45.1 %; White Blood Count 9.3 K/mcL (4.3-11.1)
[2019-01-05 06:01] LABS: Calcium 10.3 mg/dL (8.6-10.3); Potassium 4.5 mEq/L (3.5-5.1)
[2019-01-05] MEDS: *HR* Heparin 5,000 UNIT/ML VIAL SQ SCH ×2 (06:31→17:09)
[2019-01-05] MEDS: Lactulose Oral Soln 20 GM/30 ML UDC PO SCH (08:34)
[2019-01-05] MEDS: Insulin LISPRO 300 UNITS/3 ML VIAL SQ SCH ×3 (08:34→17:09)
[2019-01-05] MEDS: Amoxicillin/Clavulanate 500 MG TABLET PO SCH (08:35)
[2019-01-05] MEDS: *HR* OxyCODONE Oral Soln 5 MG/5 ML UD.LIQ PO PRN (08:35)
[2019-01-05] MEDS: Sennosides/Docusate Sodium TABLET PO SCH (08:35)
[2019-01-05] MEDS: levETIRAcetam 250 MG TABLET PO SCH (08:36)
[2019-01-05] MEDS: Divalproex (12 HR) 500 MG TABLET PO SCH ×2 (08:36→15:57)
[2019-01-05] MEDS: Benzonatate 100 MG CAPSULE PO PRN (08:36)
[2019-01-05] MEDS ORDERED: Azithromycin 250 MG TABLET PO SCH (09:00)
[2019-01-05] MEDS ORDERED: Lactobacillus 1 EACH CAP.SPRINK PO SCH (09:00)
[2019-01-05] MEDS ORDERED: Lactulose Oral Soln 20 GM/30 ML UDC PO PRN (09:04)
[2019-01-05] MEDS: amLODIPine 5 MG TABLET PO SCH (10:06)
[2019-01-05] MEDS: Insulin DETEMIR 100 UNIT/ML X5UNITS SQ SCH (10:06)
[2019-01-05] MEDS: Calcium Acetate 667 MG CAPSULE PO SCH (11:50)
[2019-01-05 16:41] VITALS: BP 104/67
== END 2019-01-05 17:58 | DRG 720 ==
LOC: ICNU → SUATTDRO 11:50 → 2ANU 19:32
PROVIDERS: ADMIT Internal Medicine; ATTEND Internal Medicine

== ENCOUNTER 2019-05-25 12:08 | Inpatient (IN) ==
[2019-05-25] MEDS ORDERED: Naloxone 0.4 MG/ML INJ IVP PRN (14:40)
[2019-05-25] MEDS ORDERED: Ondansetron 4 MG/2 ML VIAL IVP PRN (14:40)
[2019-05-25] MEDS ORDERED: *HR* Dextrose 50 % in Water (Syg) 50 ML SYRINGE IVP PRN (14:49)
[2019-05-25] MEDS ORDERED: Dextrose Gel 15 GM/37.5 ML TUBE PO PRN ×2 (14:49)
[2019-05-25] MEDS ORDERED: D5% in Water 1,000 ML IVC PRN (14:49)
[2019-05-25 15:36] LABS: ABG Base Excess -11 mEq/L (-2 to 3); ABG HCO3 18 mEq/L (21-27); ABG Oxygen Saturation 98 % (95-98); ABG PCO2 54 mmHg (35-45); ABG PH 7.14 pH Units (7.32-7.45); ABG PO2 128 mmHg (85-104); ABG TCO2 20 mEq/L (20-26); Blood Gas Modality avaps; Blood Gas VT 500 cc
[2019-05-25] MEDS ORDERED: Sodium Bicarbonate 50 MEQ/50 ML VIAL IVP ONE ×3 (15:38→17:19)
[2019-05-25 15:40] LABS: Estimated Average Glucose 154 mg/dl
[2019-05-25] MEDS: Ipratropium/Albuterol Neb 3 ML IH SCH ×4 (16:05→23:28)
[2019-05-25] MEDS: Insulin LISPRO 300 UNITS/3 ML VIAL SQ SCH ×3 (16:16→23:33)
[2019-05-25 16:22] LABS: VBG Ionized Calcium 1.51 mmol/L (1.15-1.35)
[2019-05-25] MEDS: Piperacillin/Tazobactam 3.375 GM in 0.9 % Sodium Chloride Mini Bag 100 ML IVPB SCH ×2 (17:11→23:32)
[2019-05-25] MEDS: 0.9 % Sodium Chloride 1,000 ML IVC SCH (17:11)
[2019-05-25] MEDS ORDERED: Ringers Solution, Lactated 1,000 ML IVC ONE (17:19)
[2019-05-25] MEDS: Doxycycline 100 MG in 0.9 % Sodium Chloride Mini Bag 100 ML IVPB SCH (17:30)
[2019-05-25] MEDS ORDERED: D5% in Water 250 ML ONE (18:04)
[2019-05-25] MEDS ORDERED: *HR* Norepinephrine 4 MG/4 ML VIAL IVC ONE (18:04)
[2019-05-25] MEDS: Norepinephrine 4 MG in 0.9 % Sodium Chloride 250 ML IVC SCH ×2 (18:20→21:15)
[2019-05-25] MEDS: *HR* Heparin 5,000 UNIT/ML VIAL SQ SCH (18:28)
[2019-05-25] MEDS ORDERED: *HR* LORazepam 2 MG/ML VIAL IVP PRN (18:44)
[2019-05-25] MEDS ORDERED: Artificial Tears SOLN 15 ML BOTTLE BOTH EYES PRN ×2 (18:44→21:15)
[2019-05-25] MEDS ORDERED: levETIRAcetam 500 MG/5 ML UDC GTUBE SCH (19:00)
[2019-05-25] MEDS: FentaNYL (PF) 1,000 MCG in 0.9 % Sodium Chloride 80 ML IVC SCH (19:02)
[2019-05-25 19:13] LABS: C-Reactive Protein 121 mg/L (Less than 10); Lactate Dehydrogenase 151 Units/L (140-271)
[2019-05-25 19:21] LABS: ABG Base Excess -6 mEq/L (-2 to 3); ABG HCO3 18 mEq/L (21-27); ABG Oxygen Saturation 95 % (95-98); ABG PCO2 31 mmHg (35-45); ABG PH 7.38 pH Units (7.32-7.45); ABG PO2 79 mmHg (85-104); ABG TCO2 19 mEq/L (20-26); Blood Gas Modality ASSIST CONTROL; Blood Gas VT 500 cc
[2019-05-25 19:31] LABS: Ferritin 298 ng/mL (10-120)
[2019-05-25] MEDS: levETIRAcetam 500 MG/5 ML UDC PO SCH (19:35)
[2019-05-25] MEDS ORDERED: *HR* Atropine Sulfate 1 MG/10 ML SYRINGE ONE (19:41)
[2019-05-25] MEDS ORDERED: *HR* Atropine Sulfate 1 MG/10 ML SYRINGE IVP STA (19:58)
[2019-05-25] MEDS: Artificial Tears SOLN 15 ML BOTTLE BOTH EYES SCH ×3 (20:59→23:25)
[2019-05-25] MEDS: Chlorhexidine Rinse 15 ML MOUTHWASH MM SCH ×2 (20:59→21:36)
[2019-05-25 23:19] LABS: Adenovirus Not Detected (Not Detect); Bordetella Pertussis Not Detected (Not Detect); Chlamydophila pneumoniae Not Detected (Not Detect); Coronavirus 229E Not Detected (Not Detect); Coronavirus HKU1 Not Detected (Not Detect); Coronavirus NL63 Not Detected (Not Detect); Coronavirus OC43 Not Detected (Not Detect); Human Metapneumovirus Not Detected (Not Detect); Human Rhinovirus/Enterovirus Not Detected (Not Detect); Influenza A Subtype 2009 H1 Not Detected (Not Detect); Influenza B Not Detected (Not Detect); Mycoplasma pneumoniae Not Detected (Not Detect); Parainfluenza Virus 1 Not Detected (Not Detect); Parainfluenza Virus 2 Not Detected (Not Detect); Parainfluenza Virus 3 Not Detected (Not Detect); Parainfluenza Virus 4 Not Detected (Not Detect); Respiratory Syncytial Virus Not Detected (Not Detect)
[2019-05-26] MEDS: 0.9 % Sodium Chloride 1,000 ML IVC SCH (00:15)
[2019-05-26] MEDS: Norepinephrine 4 MG in 0.9 % Sodium Chloride 250 ML IVC SCH ×2 (01:19→10:52)
[2019-05-26] MEDS: Artificial Tears SOLN 15 ML BOTTLE BOTH EYES SCH ×9 (03:16→23:14)
[2019-05-26] MEDS: Doxycycline 100 MG in 0.9 % Sodium Chloride Mini Bag 100 ML IVPB SCH ×2 (03:50→16:51)
[2019-05-26 04:24] LABS: Basophils % 0.1 %; Eosinophils # 0.1 K/mcL (0.0-0.6); Eosinophils % 0.3 %; Hemoglobin 8.4 g/dL (11.5-15.4); Immature Granulocytes % 0.6 % (0-4); Lymphocytes # 2.3 K/mcL (0.6-4.6); Lymphocytes % 11.2 %; Mean Corpuscular HGB Conc 32.3 g/dL (31.6-35.5); Mean Corpuscular Hemoglobin 31.7 pg (28.0-33.3); Mean Corpuscular Volume 98.1 fL (83.0-100.0); Mean Platelet Volume 10.9 fL (9.4-12.4); Monocytes # 1.3 K/mcL (0.0-1.3); Monocytes % 6.5 %; Neutrophils # 16.3 K/mcL (1.6-8.9); Nucleated Red Blood Cells 0.6 /100 WBC (0); Platelet Count 128 K/mcL (140-400); Red Blood Count 2.65 M/mcL (3.82-4.97); Red Cell Distribution Width 17.5 % (11.5-14.5); Segmented Neutrophils % 81.3 %
[2019-05-26 04:43] LABS: Albumin 2.9 g/dL (3.5-5.7); Albumin/Globulin Ratio 1.1 (1.1-2.2); Bilirubin,Total 0.3 mg/dL (0.3-1.0); Calcium 10.2 mg/dL (8.6-10.3); Calcium 10.4 mg/dL (8.6-10.3); Globulin 2.7 g/dL (2.4-3.5); Magnesium 2.7 mg/dL (1.6-2.6); Phosphorous 2.8 mg/dL (2.7-4.5); Potassium 3.8 mEq/L (3.5-5.1); Total Protein 5.6 g/dL (6.4-8.9)
[2019-05-26 04:45] LABS: Albumin 2.9 g/dL (3.5-5.7); Albumin/Globulin Ratio 1.1 (1.1-2.2); Bilirubin,Direct 0.1 mg/dL (0.0-0.2); Bilirubin,Indirect 0.2 mg/dL (0.0-1.0); Bilirubin,Total 0.3 mg/dL (0.3-1.0); Globulin 2.7 g/dL (2.4-3.5); Total Protein 5.6 g/dL (6.4-8.9)
[2019-05-26] MEDS: *HR* Heparin 5,000 UNIT/ML VIAL SQ SCH ×2 (05:03→17:49)
[2019-05-26] MEDS: Insulin LISPRO 300 UNITS/3 ML VIAL SQ SCH ×4 (05:04→23:39)
[2019-05-26 05:12] LABS: ABG Base Excess -8 mEq/L (-2 to 3); ABG HCO3 17 mEq/L (21-27); ABG Oxygen Saturation 96 % (95-98); ABG PCO2 29 mmHg (35-45); ABG PH 7.36 pH Units (7.32-7.45); ABG PO2 85 mmHg (85-104); ABG TCO2 17 mEq/L (20-26); Blood Gas VT 450 cc
[2019-05-26] MEDS: Ipratropium/Albuterol Neb 3 ML IH SCH (05:27)
[2019-05-26] MEDS: levETIRAcetam 500 MG/5 ML UDC PO SCH ×2 (07:55→20:16)
[2019-05-26] MEDS: Chlorhexidine Rinse 15 ML MOUTHWASH MM SCH ×4 (07:55→20:16)
[2019-05-26] MEDS: Pantoprazole 40 MG VIAL IVP SCH (07:55)
[2019-05-26] MEDS: Piperacillin/Tazobactam 3.375 GM in 0.9 % Sodium Chloride Mini Bag 100 ML IVPB SCH ×3 (07:55→23:15)
[2019-05-26] MEDS ORDERED: *HR* Propofol 200 MG/20 ML VIAL IVP ONE (09:18)
[2019-05-26] MEDS ORDERED: Lidocaine 2% Syringe 100 MG/5 ML IV ONE (09:18)
[2019-05-26] MEDS ORDERED: *HR* Etomidate 20 MG/10 ML AMPUL IVP ONE (09:18)
[2019-05-26] MEDS: Valproic Acid Oral Soln 250 MG/5 ML UDC GTUBE SCH ×2 (16:50→22:45)
[2019-05-26] MEDS: FentaNYL (PF) 1,000 MCG in 0.9 % Sodium Chloride 80 ML IVC SCH (20:13)
[2019-05-27 04:42] LABS: Basophils % 0.1 %; Eosinophils % 0.3 %; Hematocrit 22.9 % (35.3-44.9); Mean Corpuscular Hemoglobin 31.6 pg (28.0-33.3); Mean Platelet Volume 11.1 fL (9.4-12.4); Red Cell Distribution Width 18.5 % (11.5-14.5)
[2019-05-27 04:44] LABS: Hemoglobin 7.3 g/dL (11.5-15.4); Lymphocytes # 2.1 K/mcL (0.6-4.6); Lymphocytes % 14.2 %; Mean Corpuscular HGB Conc 31.9 g/dL (31.6-35.5); Mean Corpuscular Volume 99.1 fL (83.0-100.0); Monocytes # 0.8 K/mcL (0.0-1.3); Monocytes % 5.7 %; Neutrophils # 11.5 K/mcL (1.6-8.9); Nucleated Red Blood Cells 0.3 /100 WBC (0); Red Blood Count 2.31 M/mcL (3.82-4.97); Segmented Neutrophils % 78.7 %; White Blood Count 14.6 K/mcL (4.3-11.1)
[2019-05-27 04:45] LABS: ABG Base Excess -9 mEq/L (-2 to 3); ABG HCO3 17 mEq/L (21-27); ABG Oxygen Saturation 99 % (95-98); ABG PCO2 33 mmHg (35-45); ABG PH 7.31 pH Units (7.32-7.45); ABG PO2 124 mmHg (85-104); ABG TCO2 18 mEq/L (20-26); Blood Gas Modality ASSIST CONTROL; Blood Gas VT 400 cc
[2019-05-27 05:03] LABS: Calcium 9.6 mg/dL (8.6-10.3); Potassium 3.3 mEq/L (3.5-5.1)
[2019-05-27 05:09] LABS: Platelet Count 81 K/mcL (140-400)
[2019-05-27 05:11] LABS: Anisocytosis 1+ (Not Present); Platelet Estimate Decreased (Normal)
[2019-05-27] MEDS: Doxycycline 100 MG in 0.9 % Sodium Chloride Mini Bag 100 ML IVPB SCH ×2 (05:27→14:53)
[2019-05-27] MEDS: Artificial Tears SOLN 15 ML BOTTLE BOTH EYES SCH ×6 (05:27→22:41)
[2019-05-27] MEDS: *HR* Enoxaparin 40 MG/0.4 ML SYRINGE SQ SCH (05:28)
[2019-05-27] MEDS: Insulin LISPRO 300 UNITS/3 ML VIAL SQ SCH ×4 (05:44→22:43)
[2019-05-27] MEDS: Chlorhexidine Rinse 15 ML MOUTHWASH MM SCH ×3 (07:47→22:38)
[2019-05-27] MEDS: Piperacillin/Tazobactam 3.375 GM in 0.9 % Sodium Chloride Mini Bag 100 ML IVPB SCH (08:08)
[2019-05-27] MEDS: Valproic Acid Oral Soln 250 MG/5 ML UDC GTUBE SCH ×3 (08:08→22:38)
[2019-05-27] MEDS: levETIRAcetam 500 MG/5 ML UDC PO SCH ×2 (08:16→22:37)
[2019-05-27] MEDS: Pantoprazole 40 MG VIAL IVP SCH (08:16)
[2019-05-27] MEDS ORDERED: Potassium Chloride Elixir 20 MEQ/15 ML UDC GTUBE ONE (10:17)
[2019-05-27] MEDS: Norepinephrine 4 MG in 0.9 % Sodium Chloride 250 ML IVC SCH (11:05)
[2019-05-27] MEDS: FentaNYL (PF) 1,000 MCG in 0.9 % Sodium Chloride 80 ML IVC SCH ×2 (13:32→23:00)
[2019-05-27] MEDS ORDERED: *HR* LORazepam 2 MG/ML VIAL IVP PRN (13:42)
[2019-05-27 14:47] LABS: Thyroid Stimulating Hormone 2.841 mcIU/mL (0.340-5.600)
[2019-05-27 14:49] LABS: Triiodothyronine (T3) Free 1.83 pg/mL (2.50-3.90)
[2019-05-27] MEDS: Cefepime HCl 1,000 MG in Water for inj. (sterile) 10 ML IVP SCH (17:42)
[2019-05-27 17:47] LABS: Potassium 3.8 mEq/L (3.5-5.1)
[2019-05-27] MEDS ORDERED: Cefepime HCl 2,000 MG in Water for inj. (sterile) 20 ML IVP SCH (18:00)
[2019-05-27] MEDS: Insulin DETEMIR 100 UNIT/ML X5UNITS SQ SCH (22:38)
[2019-05-28] MEDS: Artificial Tears SOLN 15 ML BOTTLE BOTH EYES SCH ×6 (04:08→22:27)
[2019-05-28] MEDS: Doxycycline 100 MG in 0.9 % Sodium Chloride Mini Bag 100 ML IVPB SCH (04:37)
[2019-05-28] MEDS: *HR* Enoxaparin 40 MG/0.4 ML SYRINGE SQ SCH (04:38)
[2019-05-28] MEDS: Cefepime HCl 1,000 MG in Water for inj. (sterile) 10 ML IVP SCH (04:38)
[2019-05-28 04:58] LABS: ABG Base Excess -10 mEq/L (-2 to 3); ABG HCO3 16 mEq/L (21-27); ABG Oxygen Saturation 97 % (95-98); ABG PCO2 34 mmHg (35-45); ABG PH 7.28 pH Units (7.32-7.45); ABG PO2 96 mmHg (85-104); ABG TCO2 17 mEq/L (20-26); Blood Gas Modality AF; Blood Gas VT 400 cc
[2019-05-28 05:47] LABS: Basophils % 0.1 %; Hemoglobin 6.5 g/dL (11.5-15.4); Red Cell Distribution Width 19.4 % (11.5-14.5)
[2019-05-28 05:49] LABS: Eosinophils # 0.2 K/mcL (0.0-0.6); Eosinophils % 1.2 %; Hematocrit 21.2 % (35.3-44.9); Immature Granulocytes % 1.7 % (0-4); Immature Platelets 4.6 % (1.1-6.1); Lymphocytes # 1.6 K/mcL (0.6-4.6); Mean Corpuscular HGB Conc 30.7 g/dL (31.6-35.5); Mean Corpuscular Hemoglobin 31.1 pg (28.0-33.3); Mean Corpuscular Volume 101.4 fL (83.0-100.0); Mean Platelet Volume 11.6 fL (9.4-12.4); Monocytes # 0.8 K/mcL (0.0-1.3); Monocytes % 6.9 %; Neutrophils # 9.3 K/mcL (1.6-8.9); Nucleated Red Blood Cells 0.3 /100 WBC (0); Platelet Count 72 K/mcL (140-400); Red Blood Count 2.09 M/mcL (3.82-4.97); Segmented Neutrophils % 77.1 %; White Blood Count 12.1 K/mcL (4.3-11.1)
[2019-05-28 06:12] LABS: Albumin 2.6 g/dL (3.5-5.7); Bilirubin,Total 0.2 mg/dL (0.3-1.0); Calcium 9.4 mg/dL (8.6-10.3); Globulin 2.7 g/dL (2.4-3.5); Phosphorous 3.7 mg/dL (2.7-4.5); Potassium 4.2 mEq/L (3.5-5.1); Total Protein 5.3 g/dL (6.4-8.9)
[2019-05-28] MEDS: Insulin LISPRO 300 UNITS/3 ML VIAL SQ SCH ×3 (07:42→17:36)
[2019-05-28] MEDS: Valproic Acid Oral Soln 250 MG/5 ML UDC GTUBE SCH ×3 (08:53→22:28)
[2019-05-28] MEDS: Pantoprazole 40 MG VIAL IVP SCH (08:55)
[2019-05-28] MEDS: Chlorhexidine Rinse 15 ML MOUTHWASH MM SCH ×2 (08:55→19:45)
[2019-05-28] MEDS: levETIRAcetam 500 MG/5 ML UDC PO SCH ×2 (08:55→19:45)
[2019-05-28] MEDS: Insulin DETEMIR 100 UNIT/ML X5UNITS SQ SCH ×2 (09:10→19:45)
[2019-05-28] MEDS ORDERED: Furosemide 40 MG/4 ML VIAL IVP ONE (09:21)
[2019-05-28] MEDS: FentaNYL (PF) 1,000 MCG in 0.9 % Sodium Chloride 80 ML IVC SCH ×3 (09:39→22:51)
[2019-05-28] MEDS: Dexmedetomidine HCl 400 MCG/100 ML MLS IVC SCH (11:18)
[2019-05-28] MEDS ORDERED: 0.9 % Sodium Chloride 250 ML ONE (12:14)
[2019-05-28] MEDS ORDERED: *HR* Atropine Sulfate 1 MG/10 ML SYRINGE ONE (12:53)
[2019-05-28] MEDS: Cefepime HCl 2,000 MG in Water for inj. (sterile) 20 ML IVP SCH (17:36)
[2019-05-28] MEDS: Norepinephrine 4 MG in 0.9 % Sodium Chloride 250 ML IVC SCH (21:30)
[2019-05-29] MEDS: Dexmedetomidine HCl 400 MCG/100 ML MLS IVC SCH (01:51)
[2019-05-29 04:01] LABS: Basophils % 0.2 %; Eosinophils # 0.2 K/mcL (0.0-0.6); Eosinophils % 1.8 %; Hematocrit 23.5 % (35.3-44.9); Hemoglobin 7.2 g/dL (11.5-15.4); Immature Granulocytes % 2.4 % (0-4); Lymphocytes # 1.7 K/mcL (0.6-4.6); Lymphocytes % 17.7 %; Mean Corpuscular HGB Conc 30.6 g/dL (31.6-35.5); Mean Corpuscular Volume 101.3 fL (83.0-100.0); Mean Platelet Volume 11.2 fL (9.4-12.4); Monocytes # 0.6 K/mcL (0.0-1.3); Monocytes % 6.4 %; Neutrophils # 6.8 K/mcL (1.6-8.9); Nucleated Red Blood Cells 0.3 /100 WBC (0); Red Blood Count 2.32 M/mcL (3.82-4.97); Red Cell Distribution Width 19.7 % (11.5-14.5); Segmented Neutrophils % 71.5 %; White Blood Count 9.5 K/mcL (4.3-11.1)
[2019-05-29 04:02] LABS: Platelet Count 86 K/mcL (140-400)
[2019-05-29 04:05] LABS: INR 1.1; Prothrombin Time 12.8 Seconds (9.4-12.1)
[2019-05-29 04:08] LABS: Activated Partial Thrombo Time 33.6 Seconds (26.0-36.0)
[2019-05-29] MEDS: Artificial Tears SOLN 15 ML BOTTLE BOTH EYES SCH ×5 (04:12→21:41)
[2019-05-29 04:22] LABS: % Iron Saturation 70 % (15-50); Albumin 2.4 g/dL (3.5-5.7); Albumin/Globulin Ratio 0.8 (1.1-2.2); Bilirubin,Total 0.3 mg/dL (0.3-1.0); Calcium 9.1 mg/dL (8.6-10.3); Globulin 2.9 g/dL (2.4-3.5); Iron 126 mcg/dL (50-170); Potassium 3.8 mEq/L (3.5-5.1); Total Protein 5.3 g/dL (6.4-8.9); Transferrin 128 mg/dL (203-362)
[2019-05-29 04:47] LABS: Folate 3.6 ng/mL (3.0-16.0)
[2019-05-29 05:03] LABS: Vitamin B12 > 1500 pg/mL (250-1100)
[2019-05-29 05:27] LABS: ABG Base Excess -4 mEq/L (-2 to 3); ABG HCO3 18 mEq/L (21-27); ABG Oxygen Saturation 98 % (95-98); ABG PCO2 26 mmHg (35-45); ABG PH 7.46 pH Units (7.32-7.45); ABG PO2 104 mmHg (85-104); ABG TCO2 19 mEq/L (20-26); Blood Gas Modality AF; Blood Gas VT 450 cc
[2019-05-29 05:27] LABS: Magnesium 2.1 mg/dL (1.6-2.6); Phosphorous 3.9 mg/dL (2.7-4.5)
[2019-05-29] MEDS: Cefepime HCl 2,000 MG in Water for inj. (sterile) 20 ML IVP SCH ×2 (05:33→16:27)
[2019-05-29] MEDS ORDERED: Furosemide 20 MG/2 ML VIAL IVP ONE ×2 (06:00→07:48)
[2019-05-29] MEDS: Insulin DETEMIR 100 UNIT/ML X5UNITS SQ SCH ×2 (09:18→21:40)
[2019-05-29] MEDS: levETIRAcetam 500 MG/5 ML UDC PO SCH ×2 (09:19→21:40)
[2019-05-29] MEDS: Pantoprazole 40 MG VIAL IVP SCH (09:21)
[2019-05-29] MEDS: Valproic Acid Oral Soln 250 MG/5 ML UDC GTUBE SCH ×2 (09:21→16:27)
[2019-05-29] MEDS: Chlorhexidine Rinse 15 ML MOUTHWASH MM SCH ×2 (09:21→21:40)
[2019-05-29] MEDS: FentaNYL (PF) 1,000 MCG in 0.9 % Sodium Chloride 80 ML IVC SCH ×2 (09:49→23:20)
[2019-05-29] MEDS: Insulin LISPRO 300 UNITS/3 ML VIAL SQ SCH ×3 (13:02→17:13)
[2019-05-30] MEDS: Valproic Acid Oral Soln 250 MG/5 ML UDC GTUBE SCH ×3 (00:07→15:55)
[2019-05-30] MEDS: Artificial Tears SOLN 15 ML BOTTLE BOTH EYES SCH ×6 (00:08→20:12)
[2019-05-30 03:53] LABS: Albumin 2.5 g/dL (3.5-5.7); Albumin/Globulin Ratio 0.8 (1.1-2.2); Bilirubin,Total 0.3 mg/dL (0.3-1.0); Calcium 9.2 mg/dL (8.6-10.3); Globulin 3.1 g/dL (2.4-3.5); Phosphorous 5.3 mg/dL (2.7-4.5); Potassium 3.8 mEq/L (3.5-5.1); Total Protein 5.6 g/dL (6.4-8.9)
[2019-05-30 03:55] LABS: Basophils # 0.1 K/mcL (0.0-0.2); Basophils % 0.9 %; Eosinophils # 0.2 K/mcL (0.0-0.6); Eosinophils % 1.7 %; Hematocrit 26.7 % (35.3-44.9); Hemoglobin 8.1 g/dL (11.5-15.4); Immature Granulocytes % 6.3 % (0-4); Lymphocytes # 2.5 K/mcL (0.6-4.6); Lymphocytes % 19.8 %; Mean Corpuscular HGB Conc 30.3 g/dL (31.6-35.5); Mean Corpuscular Hemoglobin 31.4 pg (28.0-33.3); Mean Corpuscular Volume 103.5 fL (83.0-100.0); Mean Platelet Volume 10.9 fL (9.4-12.4); Monocytes # 1.3 K/mcL (0.0-1.3); Monocytes % 10.5 %; Neutrophils # 7.7 K/mcL (1.6-8.9); Nucleated Red Blood Cells 0.3 /100 WBC (0); Platelet Count 107 K/mcL (140-400); Red Blood Count 2.58 M/mcL (3.82-4.97); Red Cell Distribution Width 19.9 % (11.5-14.5); Segmented Neutrophils % 60.8 %; White Blood Count 12.7 K/mcL (4.3-11.1)
[2019-05-30 04:39] LABS: Anisocytosis 1+ (Not Present); Burr Cells 1+ (Not Present); Hypochromasia Present (Not Present); Platelet Estimate Decreased (Normal)
[2019-05-30 05:33] LABS: ABG Base Excess -15 mEq/L (-2 to 3); ABG HCO3 14 mEq/L (21-27); ABG Oxygen Saturation 92 % (95-98); ABG PCO2 39 mmHg (35-45); ABG PH 7.15 pH Units (7.32-7.45); ABG PO2 83 mmHg (85-104); ABG TCO2 15 mEq/L (20-26); Blood Gas Modality ASSIST CONTROL; Blood Gas VT 450 cc
[2019-05-30] MEDS: Cefepime HCl 2,000 MG in Water for inj. (sterile) 20 ML IVP SCH ×2 (06:23→20:12)
[2019-05-30] MEDS: levETIRAcetam 500 MG/5 ML UDC PO SCH ×2 (07:54→20:12)
[2019-05-30] MEDS: Pantoprazole 40 MG VIAL IVP SCH (07:54)
[2019-05-30] MEDS: Insulin DETEMIR 100 UNIT/ML X5UNITS SQ SCH ×2 (07:54→20:15)
[2019-05-30] MEDS: Chlorhexidine Rinse 15 ML MOUTHWASH MM SCH ×2 (07:54→21:46)
[2019-05-30] MEDS: Insulin LISPRO 300 UNITS/3 ML VIAL SQ SCH ×4 (08:21→20:13)
[2019-05-30] MEDS: Dexmedetomidine HCl 400 MCG/100 ML MLS IVC SCH ×2 (10:13→20:50)
[2019-05-30] MEDS: FentaNYL (PF) 1,000 MCG in 0.9 % Sodium Chloride 80 ML IVC SCH ×2 (12:40→21:44)
[2019-05-30] MEDS ORDERED: Sodium Bicarbonate 150 MEQ in D5% in Water 1,000 ML IVC SCH (14:15)
[2019-05-30] MEDS ORDERED: NOREPINEPHRINE IVC SCH (16:30)
[2019-05-30] MEDS ORDERED: SODIUM CHLORIDE 0.9% IVC SCH (16:30)
[2019-05-30] MEDS: Norepinephrine 4 MG in 0.9 % Sodium Chloride 250 ML IVC SCH (17:01)
[2019-05-30] MEDS: Calcium Acetate 667 MG CAPSULE PO SCH (20:12)
[2019-05-30] MEDS: Lactulose Oral Soln 20 GM/30 ML UDC PO SCH (20:12)
[2019-05-31] MEDS: Insulin LISPRO 300 UNITS/3 ML VIAL SQ SCH ×7 (00:05→23:33)
[2019-05-31] MEDS: Valproic Acid Oral Soln 250 MG/5 ML UDC GTUBE SCH ×4 (00:06→23:28)
[2019-05-31] MEDS: Artificial Tears SOLN 15 ML BOTTLE BOTH EYES SCH ×7 (00:06→23:33)
[2019-05-31] MEDS: Norepinephrine 4 MG in 0.9 % Sodium Chloride 250 ML IVC SCH (00:58)
[2019-05-31 05:12] LABS: ABG Base Excess -10 mEq/L (-2 to 3); ABG HCO3 18 mEq/L (21-27); ABG Oxygen Saturation 94 % (95-98); ABG PCO2 45 mmHg (35-45); ABG PO2 84 mmHg (85-104); ABG TCO2 19 mEq/L (20-26); Blood Gas Modality ASSIST CONTROL; Blood Gas VT 450 cc
[2019-05-31] MEDS: Cefepime HCl 2,000 MG in Water for inj. (sterile) 20 ML IVP SCH (05:21)
[2019-05-31 08:39] LABS: Hematocrit 27.8 % (35.3-44.9); Hemoglobin 8.2 g/dL (11.5-15.4); Mean Corpuscular HGB Conc 29.5 g/dL (31.6-35.5); Mean Corpuscular Hemoglobin 30.6 pg (28.0-33.3); Mean Corpuscular Volume 103.7 fL (83.0-100.0); Mean Platelet Volume 10.2 fL (9.4-12.4); Platelet Count 139 K/mcL (140-400); Red Blood Count 2.68 M/mcL (3.82-4.97); Red Cell Distribution Width 19.4 % (11.5-14.5); White Blood Count 15.5 K/mcL (4.3-11.1)
[2019-05-31 09:00] LABS: Albumin 2.7 g/dL (3.5-5.7); Albumin/Globulin Ratio 0.8 (1.1-2.2); Bilirubin,Total 0.3 mg/dL (0.3-1.0); Globulin 3.2 g/dL (2.4-3.5); Magnesium 1.9 mg/dL (1.6-2.6); Phosphorous 5.3 mg/dL (2.7-4.5); Potassium 3.6 mEq/L (3.5-5.1); Total Protein 5.9 g/dL (6.4-8.9)
[2019-05-31] MEDS: Lactulose Oral Soln 20 GM/30 ML UDC PO SCH ×2 (09:50→19:21)
[2019-05-31] MEDS: levETIRAcetam 500 MG/5 ML UDC PO SCH ×2 (09:50→19:21)
[2019-05-31] MEDS: Pantoprazole 40 MG VIAL IVP SCH (09:50)
[2019-05-31] MEDS: Calcium Acetate 667 MG CAPSULE PO SCH ×2 (09:50→19:21)
[2019-05-31] MEDS: Chlorhexidine Rinse 15 ML MOUTHWASH MM SCH ×2 (09:50→19:21)
[2019-05-31] MEDS: Dexmedetomidine HCl 400 MCG/100 ML MLS IVC SCH ×2 (10:18→23:43)
[2019-05-31] MEDS: FentaNYL (PF) 1,000 MCG in 0.9 % Sodium Chloride 80 ML IVC SCH (11:35)
[2019-05-31] MEDS: Insulin DETEMIR 100 UNIT/ML X5UNITS SQ SCH ×2 (11:57→19:21)
[2019-05-31] MEDS: Potassium Chloride Elixir 20 MEQ/15 ML UDC GTUBE PRN (13:02)
[2019-05-31] MEDS: *HR* Heparin 5,000 UNIT/ML VIAL SQ SCH (18:24)
[2019-06-01] MEDS ORDERED: Lidocaine -MPF 2% 2 ML VIAL ONE (01:33)
[2019-06-01 04:42] LABS: Hematocrit 24.9 % (35.3-44.9); Hemoglobin 7.4 g/dL (11.5-15.4); Mean Corpuscular HGB Conc 29.7 g/dL (31.6-35.5); Mean Corpuscular Hemoglobin 31.2 pg (28.0-33.3); Mean Corpuscular Volume 105.1 fL (83.0-100.0); Mean Platelet Volume 10.5 fL (9.4-12.4); Nucleated Red Blood Cells 0.2 /100 WBC (0); Platelet Count 111 K/mcL (140-400); Red Blood Count 2.37 M/mcL (3.82-4.97); Red Cell Distribution Width 19.3 % (11.5-14.5); White Blood Count 11.1 K/mcL (4.3-11.1)
[2019-06-01 05:02] LABS: Anisocytosis 1+ (Not Present); Calcium 9.1 mg/dL (8.6-10.3); Lymphocytes # 2.9 K/mcL (0.6-4.6); Microcytosis Present (Not Present); Neutrophils # 8.2 K/mcL (1.6-8.9); Potassium 4.1 mEq/L (3.5-5.1)
[2019-06-01 05:03] LABS: Platelet Estimate Slight Decrease (Normal)
[2019-06-01 05:05] LABS: Magnesium 2.4 mg/dL (1.6-2.6); Phosphorous 5.9 mg/dL (2.7-4.5)
[2019-06-01] MEDS: Artificial Tears SOLN 15 ML BOTTLE BOTH EYES SCH ×5 (05:25→20:54)
[2019-06-01] MEDS: Insulin LISPRO 300 UNITS/3 ML VIAL SQ SCH ×5 (05:25→20:54)
[2019-06-01] MEDS: FentaNYL (PF) 1,000 MCG in 0.9 % Sodium Chloride 80 ML IVC SCH (05:26)
[2019-06-01 05:32] LABS: ABG Base Excess -9 mEq/L (-2 to 3); ABG HCO3 18 mEq/L (21-27); ABG Oxygen Saturation 96 % (95-98); ABG PCO2 44 mmHg (35-45); ABG PH 7.21 pH Units (7.32-7.45); ABG PO2 96 mmHg (85-104); ABG TCO2 19 mEq/L (20-26); Blood Gas Modality AF; Blood Gas VT 450 cc
[2019-06-01] MEDS: *HR* Heparin 5,000 UNIT/ML VIAL SQ SCH ×2 (06:42→17:24)
[2019-06-01] MEDS: levETIRAcetam 500 MG/5 ML UDC PO SCH ×2 (08:27→20:52)
[2019-06-01] MEDS: Valproic Acid Oral Soln 250 MG/5 ML UDC GTUBE SCH ×2 (08:27→15:26)
[2019-06-01] MEDS: Pantoprazole 40 MG VIAL IVP SCH (08:27)
[2019-06-01] MEDS: Chlorhexidine Rinse 15 ML MOUTHWASH MM SCH ×2 (08:27→20:52)
[2019-06-01] MEDS: Lactulose Oral Soln 20 GM/30 ML UDC PO SCH ×2 (08:27→20:53)
[2019-06-01] MEDS: Calcium Acetate 667 MG CAPSULE PO SCH ×2 (08:29→20:53)
[2019-06-01 13:54] LABS: Bilirubin,Urine Negative (Negative); Blood,Urine Moderate (Negative); Clarity,Urine Turbid (Clear); Color,Urine Yellow (Yellow); Glucose,Urine (UA) Normal (Normal); Ketones,Urine Negative (Negative); Leukocyte Esterase,Urine Large (Negative); Nitrite,Urine Negative (Negative); Protein,Urine 100 mg/dL (Neg-Trace); Specific Gravity,Urine 1.019 (1.010-1.025); Urobilinogen,Urine Normal (Normal)
[2019-06-01 13:56] LABS: Bacteria,Urine None Seen per hpf (None-Few); Hyaline Casts,Urine Few per lpf (None-Few); Squamous Epithelial Cell,Urine Many per lpf (None-Few); WBC,Urine TNTC per hpf (0-3)
[2019-06-01 14:09] LABS: Yeast,Urine Many per hpf (None Seen)
[2019-06-01 14:27] LABS: Potassium,Urine 36.5 mEq/L; Sodium, Urine 54.9 mEq/L
[2019-06-01] MEDS ORDERED: 0.9 % Sodium Chloride 1,000 ML ONE (15:20)
[2019-06-01] MEDS ORDERED: 0.9 % Sodium Chloride 1,000 ML IVC SCH (15:30)
[2019-06-01] MEDS ORDERED: Albumin 25% 25gram/100mL 25 GM/100 ML IV.SOLN IVPB ONE (16:08)
[2019-06-01] MEDS: Sodium Bicarbonate 75 MEQ in 0.45 % Sodium Chloride 1,000 ML IVC SCH (16:49)
[2019-06-01] MEDS: Docusate Oral Soln 100 MG/10 ML UDC GTUBE SCH (20:52)
[2019-06-01] MEDS: Insulin DETEMIR 100 UNIT/ML X5UNITS SQ SCH (20:53)
[2019-06-02] MEDS ORDERED: *HR* Metoprolol 5 MG/5 ML VIAL IVP ONE ×2 (01:03→02:56)
[2019-06-02] MEDS: Valproic Acid Oral Soln 250 MG/5 ML UDC GTUBE SCH ×4 (01:10→23:26)
[2019-06-02] MEDS: Insulin LISPRO 300 UNITS/3 ML VIAL SQ SCH ×7 (01:11→23:29)
[2019-06-02] MEDS: Artificial Tears SOLN 15 ML BOTTLE BOTH EYES SCH ×7 (01:11→23:26)
[2019-06-02] MEDS ORDERED: 0.9 % Sodium Chloride 500 ML IVC ONE (02:35)
[2019-06-02] MEDS ORDERED: *HR* Heparin 5,000 UNIT/ML VIAL IVP ONE (02:47)
[2019-06-02] MEDS ORDERED: *HR* Heparin 5,000 UNIT/ML VIAL IVP PRN ×2 (02:47)
[2019-06-02] MEDS: Norepinephrine 4 MG in 0.9 % Sodium Chloride 250 ML IVC SCH ×2 (02:52→17:02)
[2019-06-02] MEDS: Dexmedetomidine HCl 400 MCG/100 ML MLS IVC SCH ×2 (02:54→14:56)
[2019-06-02] MEDS ORDERED: Heparin 25,000 UNIT/250 ML D5W 25,000 UNIT/250 ML IV.SOLN IVC SCH (03:00)
[2019-06-02 04:19] LABS: Hematocrit 20.1 % (35.3-44.9); Hemoglobin 6.1 g/dL (11.5-15.4); Mean Corpuscular HGB Conc 30.3 g/dL (31.6-35.5); Mean Corpuscular Hemoglobin 31.6 pg (28.0-33.3); Mean Corpuscular Volume 104.1 fL (83.0-100.0); Mean Platelet Volume 10.8 fL (9.4-12.4); Nucleated Red Blood Cells 0.2 /100 WBC (0); Platelet Count 102 K/mcL (140-400); Red Blood Count 1.93 M/mcL (3.82-4.97); White Blood Count 10.4 K/mcL (4.3-11.1)
[2019-06-02 04:22] LABS: VBG Ionized Calcium 1.29 mmol/L (1.15-1.35)
[2019-06-02 04:35] LABS: ABG Base Excess -7 mEq/L (-2 to 3); ABG HCO3 19 mEq/L (21-27); ABG Oxygen Saturation 98 % (95-98); ABG PCO2 39 mmHg (35-45); ABG PH 7.29 pH Units (7.32-7.45); ABG PO2 113 mmHg (85-104); ABG TCO2 20 mEq/L (20-26); Blood Gas Modality ASSIST CONTROL; Blood Gas VT 450 cc
[2019-06-02 04:38] LABS: Calcium 8.7 mg/dL (8.6-10.3); Potassium 3.1 mEq/L (3.5-5.1)
[2019-06-02 04:40] LABS: Magnesium 2.3 mg/dL (1.6-2.6); Phosphorous 3.8 mg/dL (2.7-4.5)
[2019-06-02 04:54] LABS: Thyroid Stimulating Hormone 4.421 mcIU/mL (0.340-5.600)
[2019-06-02 05:45] LABS: Anisocytosis 1+ (Not Present); Eosinophils # 0.4 K/mcL (0.0-0.6); Lymphocytes # 2.9 K/mcL (0.6-4.6); Monocytes # 0.4 K/mcL (0.0-1.3); Neutrophils # 6.7 K/mcL (1.6-8.9); Platelet Estimate Slight Decrease (Normal)
[2019-06-02] MEDS: Sodium Bicarbonate 75 MEQ in 0.45 % Sodium Chloride 1,000 ML IVC SCH (06:00)
[2019-06-02] MEDS: Potassium Chloride Elixir 20 MEQ/15 ML UDC GTUBE PRN ×3 (06:25→18:52)
[2019-06-02] MEDS ORDERED: Potassium Chloride 40 MEQ, Lidocaine 1% 2 ML in 0.9 % Sodium Chloride 500 ML IVPB ONE (06:33)
[2019-06-02 06:54] LABS: Eosinophils # 0.2 K/mcL (0.0-0.6); Hematocrit 20.9 % (35.3-44.9); Hemoglobin 6.4 g/dL (11.5-15.4); Mean Corpuscular HGB Conc 30.6 g/dL (31.6-35.5); Mean Corpuscular Hemoglobin 31.7 pg (28.0-33.3); Mean Corpuscular Volume 103.5 fL (83.0-100.0); Mean Platelet Volume 10.7 fL (9.4-12.4); Platelet Count 114 K/mcL (140-400); Red Blood Count 2.02 M/mcL (3.82-4.97); Red Cell Distribution Width 18.7 % (11.5-14.5); White Blood Count 11.8 K/mcL (4.3-11.1)
[2019-06-02 06:58] LABS: INR 1.3; Prothrombin Time 15.1 Seconds (9.4-12.1)
[2019-06-02] MEDS ORDERED: 0.9 % Sodium Chloride 250 ML IVC SCH (07:00)
[2019-06-02 07:09] LABS: Heparin anti-factor XA UFH 1.94 IU/mL (0.30-0.70)
[2019-06-02 07:33] LABS: Anisocytosis 1+ (Not Present); Lymphocytes # 1.7 K/mcL (0.6-4.6); Microcytosis Present (Not Present); Monocytes # 0.2 K/mcL (0.0-1.3); Neutrophils # 9.7 K/mcL (1.6-8.9)
[2019-06-02 07:34] LABS: Platelet Estimate Slight Decrease (Normal)
[2019-06-02] MEDS: Lactulose Oral Soln 20 GM/30 ML UDC PO SCH ×2 (08:05→20:19)
[2019-06-02] MEDS: Pantoprazole 40 MG VIAL IVP SCH (08:05)
[2019-06-02] MEDS: Docusate Oral Soln 100 MG/10 ML UDC GTUBE SCH ×2 (08:05→20:19)
[2019-06-02] MEDS: Calcium Acetate 667 MG CAPSULE PO SCH ×2 (08:05→20:20)
[2019-06-02] MEDS: levETIRAcetam 500 MG/5 ML UDC PO SCH ×2 (08:05→20:19)
[2019-06-02] MEDS: Chlorhexidine Rinse 15 ML MOUTHWASH MM SCH ×2 (08:05→20:18)
[2019-06-02] MEDS ORDERED: 0.9 % Sodium Chloride 250 ML ONE (08:12)
[2019-06-02] MEDS: Insulin DETEMIR 100 UNIT/ML X5UNITS SQ SCH ×2 (09:21→20:19)
[2019-06-02] MEDS: FentaNYL (PF) 1,000 MCG in 0.9 % Sodium Chloride 80 ML IVC SCH (10:11)
[2019-06-02 12:10] LABS: Hematocrit 21.4 % (35.3-44.9); Hemoglobin 6.7 g/dL (11.5-15.4)
[2019-06-02 12:33] LABS: Albumin 2.4 g/dL (3.5-5.7); Bilirubin,Total 0.3 mg/dL (0.3-1.0); Calcium 8.5 mg/dL (8.6-10.3); Globulin 2.5 g/dL (2.4-3.5); Potassium 3.6 mEq/L (3.5-5.1); Total Protein 4.9 g/dL (6.4-8.9)
[2019-06-02 17:51] LABS: Albumin 2.4 g/dL (3.5-5.7); Bilirubin,Total 0.3 mg/dL (0.3-1.0); Calcium 8.4 mg/dL (8.6-10.3); Globulin 2.3 g/dL (2.4-3.5); Potassium 3.9 mEq/L (3.5-5.1); Total Protein 4.7 g/dL (6.4-8.9)
[2019-06-02 18:45] LABS: Hematocrit 24.3 % (35.3-44.9); Hemoglobin 7.7 g/dL (11.5-15.4)
[2019-06-03] MEDS: Insulin LISPRO 300 UNITS/3 ML VIAL SQ SCH ×6 (04:07→23:50)
[2019-06-03] MEDS: Artificial Tears SOLN 15 ML BOTTLE BOTH EYES SCH ×6 (04:08→23:50)
[2019-06-03 05:03] LABS: ABG Base Excess -6 mEq/L (-2 to 3); ABG HCO3 20 mEq/L (21-27); ABG Oxygen Saturation 94 % (95-98); ABG PCO2 37 mmHg (35-45); ABG PH 7.33 pH Units (7.32-7.45); ABG PO2 73 mmHg (85-104); ABG TCO2 21 mEq/L (20-26); Blood Gas Modality ASSIST CONTROL; Blood Gas VT 450 cc
[2019-06-03 05:22] LABS: Hematocrit 28.2 % (35.3-44.9); Mean Corpuscular HGB Conc 31.9 g/dL (31.6-35.5); Mean Corpuscular Hemoglobin 31.3 pg (28.0-33.3); Mean Corpuscular Volume 97.9 fL (83.0-100.0); Mean Platelet Volume 10.9 fL (9.4-12.4); Nucleated Red Blood Cells 0.2 /100 WBC (0); Platelet Count 145 K/mcL (140-400); Red Blood Count 2.88 M/mcL (3.82-4.97); Red Cell Distribution Width 19.1 % (11.5-14.5); White Blood Count 11.7 K/mcL (4.3-11.1)
[2019-06-03 05:23] LABS: VBG Ionized Calcium 1.31 mmol/L (1.15-1.35)
[2019-06-03 05:46] LABS: Calcium 9.2 mg/dL (8.6-10.3); Magnesium 2.2 mg/dL (1.6-2.6); Phosphorous 2.5 mg/dL (2.7-4.5); Potassium 4.2 mEq/L (3.5-5.1)
[2019-06-03 05:54] LABS: Anisocytosis 1+ (Not Present); Eosinophils # 0.2 K/mcL (0.0-0.6); Lymphocytes # 0.7 K/mcL (0.6-4.6); Microcytosis Present (Not Present); Monocytes # 0.5 K/mcL (0.0-1.3); Neutrophils # 9.8 K/mcL (1.6-8.9); Platelet Estimate Slight Decrease (Normal)
[2019-06-03 05:55] LABS: Toxic Granulation Present (Not Present)
[2019-06-03] MEDS ORDERED: Potassium Phosphate 44 MEQ in 0.9 % Sodium Chloride 250 ML IVPB PRN (06:48)
[2019-06-03] MEDS: Valproic Acid Oral Soln 250 MG/5 ML UDC GTUBE SCH ×3 (07:50→23:49)
[2019-06-03] MEDS: Lactulose Oral Soln 20 GM/30 ML UDC PO SCH ×2 (07:51→19:58)
[2019-06-03] MEDS: Chlorhexidine Rinse 15 ML MOUTHWASH MM SCH ×2 (07:51→19:57)
[2019-06-03] MEDS: Pantoprazole 40 MG VIAL IVP SCH (07:52)
[2019-06-03] MEDS: Calcium Acetate 667 MG CAPSULE PO SCH (07:52)
[2019-06-03] MEDS: levETIRAcetam 500 MG/5 ML UDC PO SCH ×2 (07:53→19:57)
[2019-06-03] MEDS: Docusate Oral Soln 100 MG/10 ML UDC GTUBE SCH ×2 (07:56→19:57)
[2019-06-03] MEDS: Insulin DETEMIR 100 UNIT/ML X5UNITS SQ SCH ×2 (08:01→19:57)
[2019-06-03] MEDS ORDERED: Furosemide 40 MG/4 ML VIAL IVP ONE (09:23)
[2019-06-03] MEDS ORDERED: Insulin DETEMIR 100 UNIT/ML X5UNITS SQ ONE (09:45)
[2019-06-03] MEDS: Haloperidol Oral Conc 10 MG/5 ML UDC GTUBE SCH ×3 (10:32→19:58)
[2019-06-03] MEDS: Dexmedetomidine HCl 400 MCG/100 ML MLS IVC SCH (10:36)
[2019-06-03 12:17] LABS: Potassium,Urine 17.3 mEq/L; Sodium, Urine 101.4 mEq/L
[2019-06-03 12:18] LABS: Bilirubin,Urine Negative (Negative); Blood,Urine Moderate (Negative); Clarity,Urine Cloudy (Clear); Color,Urine Yellow (Yellow); Glucose,Urine (UA) Normal (Normal); Ketones,Urine Negative (Negative); Leukocyte Esterase,Urine Large (Negative); Nitrite,Urine Negative (Negative); PH,Urine 5.5 pH Units (5.0-8.0); Protein,Urine 100 mg/dL (Neg-Trace); Specific Gravity,Urine 1.013 (1.010-1.025); Urobilinogen,Urine Normal (Normal)
[2019-06-03 12:21] LABS: Bacteria,Urine None Seen per hpf (None-Few); Hyaline Casts,Urine None Seen per lpf (None-Few); RBC,Urine 15-30 per hpf (0-3); Squamous Epithelial Cell,Urine Moderate per lpf (None-Few); WBC,Urine TNTC per hpf (0-3)
[2019-06-03] MEDS ORDERED: *HR* Midazolam HCl 2 MG/2 ML VIAL IVP ONE ×2 (16:25)
[2019-06-03] MEDS ORDERED: *HR* Midazolam HCl 5 MG/5 ML VIAL IVP ONE (16:26)
[2019-06-03] MEDS: FentaNYL (PF) 1,000 MCG in 0.9 % Sodium Chloride 80 ML IVC SCH (17:43)
[2019-06-03 20:59] LABS: Appearance of Body Fluid Cloudy (Clear)
[2019-06-03 21:00] LABS: Volume of Body Fluid 20 mL
[2019-06-04] MEDS: Dexmedetomidine HCl 400 MCG/100 ML MLS IVC SCH ×2 (00:35→23:04)
[2019-06-04 03:26] LABS: Basophils % 0.2 %; Eosinophils # 0.2 K/mcL (0.0-0.6); Hematocrit 24.2 % (35.3-44.9); Hemoglobin 7.7 g/dL (11.5-15.4); Immature Granulocytes % 5.1 % (0-4); Lymphocytes # 1.9 K/mcL (0.6-4.6); Lymphocytes % 18.8 %; Mean Corpuscular HGB Conc 31.8 g/dL (31.6-35.5); Mean Corpuscular Hemoglobin 31.6 pg (28.0-33.3); Mean Corpuscular Volume 99.2 fL (83.0-100.0); Mean Platelet Volume 10.9 fL (9.4-12.4); Monocytes # 1.1 K/mcL (0.0-1.3); Monocytes % 10.6 %; Neutrophils # 6.5 K/mcL (1.6-8.9); Nucleated Red Blood Cells 0.3 /100 WBC (0); Platelet Count 142 K/mcL (140-400); Red Blood Count 2.44 M/mcL (3.82-4.97); Red Cell Distribution Width 18.9 % (11.5-14.5); Segmented Neutrophils % 63.3 %; White Blood Count 10.3 K/mcL (4.3-11.1)
[2019-06-04 03:46] LABS: Calcium 9.2 mg/dL (8.6-10.3); Magnesium 2.2 mg/dL (1.6-2.6); Phosphorous 4.1 mg/dL (2.7-4.5); Potassium 4.5 mEq/L (3.5-5.1)
[2019-06-04] MEDS: Insulin LISPRO 300 UNITS/3 ML VIAL SQ SCH ×7 (04:01→23:57)
[2019-06-04] MEDS: Artificial Tears SOLN 15 ML BOTTLE BOTH EYES SCH ×6 (04:01→23:56)
[2019-06-04 04:08] LABS: Anisocytosis 1+ (Not Present); Platelet Estimate Slight Decrease (Normal)
[2019-06-04 04:51] LABS: ABG Base Excess -3 mEq/L (-2 to 3); ABG HCO3 22 mEq/L (21-27); ABG Oxygen Saturation 97 % (95-98); ABG PCO2 37 mmHg (35-45); ABG PH 7.37 pH Units (7.32-7.45); ABG PO2 88 mmHg (85-104); ABG TCO2 23 mEq/L (20-26); Blood Gas Modality AF; Blood Gas VT 400 cc
[2019-06-04] MEDS: Pantoprazole 40 MG VIAL IVP SCH (07:57)
[2019-06-04] MEDS: levETIRAcetam 500 MG/5 ML UDC PO SCH ×2 (07:57→19:59)
[2019-06-04] MEDS: Valproic Acid Oral Soln 250 MG/5 ML UDC GTUBE SCH ×3 (07:57→23:09)
[2019-06-04] MEDS: Chlorhexidine Rinse 15 ML MOUTHWASH MM SCH ×2 (07:58→19:59)
[2019-06-04] MEDS: Docusate Oral Soln 100 MG/10 ML UDC GTUBE SCH ×2 (07:59→19:59)
[2019-06-04] MEDS: Insulin DETEMIR 100 UNIT/ML X5UNITS SQ SCH ×2 (07:59→20:00)
[2019-06-04] MEDS: Haloperidol Oral Conc 10 MG/5 ML UDC GTUBE SCH ×3 (08:00→19:59)
[2019-06-04] MEDS: Lactulose Oral Soln 20 GM/30 ML UDC PO SCH ×2 (08:00→20:22)
[2019-06-04] MEDS ORDERED: Furosemide 40 MG/4 ML VIAL IVP ONE (10:00)
[2019-06-04] MEDS: Albumin 25% 25gram/100mL 25 GM/100 ML IV.SOLN IVC SCH ×4 (10:56→16:38)
[2019-06-04] MEDS: FentaNYL (PF) 1,000 MCG in 0.9 % Sodium Chloride 80 ML IVC SCH (23:04)
[2019-06-05] MEDS: FentaNYL (PF) 1,000 MCG in 0.9 % Sodium Chloride 80 ML IVC SCH (03:11)
[2019-06-05 03:43] LABS: Eosinophils # 0.1 K/mcL (0.0-0.6); Hematocrit 20.3 % (35.3-44.9); Hemoglobin 6.2 g/dL (11.5-15.4); Lymphocytes # 1.7 K/mcL (0.6-4.6); Mean Corpuscular HGB Conc 30.5 g/dL (31.6-35.5); Mean Corpuscular Hemoglobin 30.8 pg (28.0-33.3); Mean Platelet Volume 11.3 fL (9.4-12.4); Platelet Count 125 K/mcL (140-400); Red Blood Count 2.01 M/mcL (3.82-4.97); Red Cell Distribution Width 18.7 % (11.5-14.5); White Blood Count 6.2 K/mcL (4.3-11.1)
[2019-06-05 04:00] LABS: Calcium 9.5 mg/dL (8.6-10.3); Magnesium 2.2 mg/dL (1.6-2.6); Potassium 4.1 mEq/L (3.5-5.1)
[2019-06-05 04:05] LABS: Monocytes # 0.3 K/mcL (0.0-1.3); Neutrophils # 4.1 K/mcL (1.6-8.9)
[2019-06-05] MEDS: Artificial Tears SOLN 15 ML BOTTLE BOTH EYES SCH ×6 (04:15→23:26)
[2019-06-05] MEDS: Insulin LISPRO 300 UNITS/3 ML VIAL SQ SCH ×6 (04:15→23:26)
[2019-06-05] MEDS: Valproic Acid Oral Soln 250 MG/5 ML UDC GTUBE SCH ×3 (06:31→23:26)
[2019-06-05] MEDS ORDERED: Furosemide 40 MG/4 ML VIAL IVP ONE ×2 (06:53→08:00)
[2019-06-05 07:57] LABS: ABG Base Excess -2 mEq/L (-2 to 3); ABG HCO3 23 mEq/L (21-27); ABG Oxygen Saturation 97 % (95-98); ABG PCO2 40 mmHg (35-45); ABG PH 7.38 pH Units (7.32-7.45); ABG PO2 92 mmHg (85-104); ABG TCO2 24 mEq/L (20-26); Blood Gas VT 400 cc
[2019-06-05] MEDS: Chlorhexidine Rinse 15 ML MOUTHWASH MM SCH ×2 (08:35→20:17)
[2019-06-05] MEDS: Haloperidol Oral Conc 10 MG/5 ML UDC GTUBE SCH ×3 (08:36→20:17)
[2019-06-05] MEDS: Pantoprazole 40 MG VIAL IVP SCH (08:37)
[2019-06-05] MEDS: levETIRAcetam 500 MG/5 ML UDC PO SCH ×2 (08:37→20:17)
[2019-06-05] MEDS: Docusate Oral Soln 100 MG/10 ML UDC GTUBE SCH ×2 (08:39→20:16)
[2019-06-05] MEDS: Insulin DETEMIR 100 UNIT/ML X5UNITS SQ SCH ×2 (08:46→20:20)
[2019-06-05] MEDS ORDERED: 0.9 % Sodium Chloride 250 ML ONE (10:01)
[2019-06-05] MEDS ORDERED: *HR* Midazolam HCl 2 MG/2 ML VIAL IVP PRN (12:54)
[2019-06-05] MEDS ORDERED: *HR* Midazolam HCl 5 MG/5 ML VIAL IVP ONE (12:55)
[2019-06-05] MEDS ORDERED: SODIUM CHLORIDE 0.9% IVPB SCH (13:00)
[2019-06-05] MEDS ORDERED: DESMOPRESSIN ACETATE IVPB SCH (13:00)
[2019-06-05 14:50] LABS: Hematocrit 25.4 % (35.3-44.9); Hemoglobin 7.9 g/dL (11.5-15.4)
[2019-06-05 15:03] LABS: INR 1.1; Prothrombin Time 12.6 Seconds (9.4-12.1)
[2019-06-05] MEDS: Dexmedetomidine HCl 400 MCG/100 ML MLS IVC SCH (15:36)
[2019-06-05 15:38] LABS: Total Protein 5.7 g/dL (6.4-8.9)
[2019-06-05] MEDS ORDERED: Furosemide 20 MG/2 ML VIAL IVP ONE (18:00)
[2019-06-05] MEDS ORDERED: Scopolamine Patch 1.5 MG PATCH.TD72 TD ONE (19:27)
[2019-06-05] MEDS: Albuterol 2.5 MG/3 ML NEBULIZER IH SCH (21:27)
[2019-06-05 22:17] LABS: Hematocrit 27.3 % (35.3-44.9)
[2019-06-05 22:19] LABS: Hemoglobin 8.4 g/dL (11.5-15.4)
[2019-06-06] MEDS: Albuterol 2.5 MG/3 ML NEBULIZER IH SCH ×4 (03:36→21:42)
[2019-06-06] MEDS: Artificial Tears SOLN 15 ML BOTTLE BOTH EYES SCH ×6 (03:55→23:41)
[2019-06-06] MEDS: Insulin LISPRO 300 UNITS/3 ML VIAL SQ SCH ×6 (03:55→23:42)
[2019-06-06 04:10] LABS: Hematocrit 27.7 % (35.3-44.9); Hemoglobin 8.6 g/dL (11.5-15.4); Mean Corpuscular Hemoglobin 30.4 pg (28.0-33.3); Mean Corpuscular Volume 97.9 fL (83.0-100.0); Mean Platelet Volume 10.9 fL (9.4-12.4); Nucleated Red Blood Cells 0.2 /100 WBC (0); Platelet Count 145 K/mcL (140-400); Red Blood Count 2.83 M/mcL (3.82-4.97); Red Cell Distribution Width 19.7 % (11.5-14.5); White Blood Count 8.9 K/mcL (4.3-11.1)
[2019-06-06 04:16] LABS: ABG Base Excess -2 mEq/L (-2 to 3); ABG HCO3 23 mEq/L (21-27); ABG Oxygen Saturation 94 % (95-98); ABG PCO2 39 mmHg (35-45); ABG PH 7.38 pH Units (7.32-7.45); ABG PO2 71 mmHg (85-104); ABG TCO2 24 mEq/L (20-26); Blood Gas Modality AF; Blood Gas VT 400 cc
[2019-06-06 04:28] LABS: Calcium 9.7 mg/dL (8.6-10.3); Potassium 4.1 mEq/L (3.5-5.1)
[2019-06-06 04:50] LABS: Basophils # 0.2 K/mcL (0.0-0.2); Eosinophils # 0.4 K/mcL (0.0-0.6); Lymphocytes # 1.6 K/mcL (0.6-4.6); Monocytes # 0.5 K/mcL (0.0-1.3); Neutrophils # 6.2 K/mcL (1.6-8.9)
[2019-06-06 04:51] LABS: Platelet Estimate Slight Decrease (Normal)
[2019-06-06] MEDS: Valproic Acid Oral Soln 250 MG/5 ML UDC GTUBE SCH ×3 (05:59→23:41)
[2019-06-06] MEDS: Docusate Oral Soln 100 MG/10 ML UDC GTUBE SCH ×2 (07:49→19:46)
[2019-06-06] MEDS: Chlorhexidine Rinse 15 ML MOUTHWASH MM SCH ×2 (07:49→19:45)
[2019-06-06] MEDS: Haloperidol Oral Conc 10 MG/5 ML UDC GTUBE SCH ×3 (07:49→19:46)
[2019-06-06] MEDS: levETIRAcetam 500 MG/5 ML UDC PO SCH ×2 (07:50→19:45)
[2019-06-06] MEDS: Pantoprazole 40 MG VIAL IVP SCH (07:50)
[2019-06-06] MEDS: Insulin DETEMIR 100 UNIT/ML X5UNITS SQ SCH ×2 (07:52→19:45)
[2019-06-06] MEDS ORDERED: Aminoglycoside Consult 1 EACH MC ONE (08:10)
[2019-06-06] MEDS: Dexmedetomidine HCl 400 MCG/100 ML MLS IVC SCH ×2 (10:54→23:43)
[2019-06-06 12:02] LABS: Appearance of Body Fluid Cloudy (Clear); Volume of Body Fluid 32 mL
[2019-06-06] MEDS: FentaNYL (PF) 1,000 MCG in 0.9 % Sodium Chloride 80 ML IVC SCH (16:57)
[2019-06-07] MEDS: Albuterol 2.5 MG/3 ML NEBULIZER IH SCH ×4 (03:38→21:28)
[2019-06-07 03:57] LABS: Basophils % 0.5 %; Eosinophils # 0.1 K/mcL (0.0-0.6); Eosinophils % 1.5 %; Hematocrit 27.5 % (35.3-44.9); Hemoglobin 8.5 g/dL (11.5-15.4); Immature Granulocytes % 5.1 % (0-4); Lymphocytes % 24.1 %; Mean Corpuscular HGB Conc 30.9 g/dL (31.6-35.5); Mean Corpuscular Hemoglobin 30.5 pg (28.0-33.3); Mean Corpuscular Volume 98.6 fL (83.0-100.0); Mean Platelet Volume 10.8 fL (9.4-12.4); Monocytes # 0.7 K/mcL (0.0-1.3); Monocytes % 8.6 %; Neutrophils # 4.9 K/mcL (1.6-8.9); Platelet Count 133 K/mcL (140-400); Red Blood Count 2.79 M/mcL (3.82-4.97); Red Cell Distribution Width 19.9 % (11.5-14.5); Segmented Neutrophils % 60.2 %; White Blood Count 8.2 K/mcL (4.3-11.1)
[2019-06-07] MEDS: Artificial Tears SOLN 15 ML BOTTLE BOTH EYES SCH ×6 (04:03→22:49)
[2019-06-07] MEDS: Insulin LISPRO 300 UNITS/3 ML VIAL SQ SCH ×6 (04:04→22:47)
[2019-06-07 04:14] LABS: Blood Urea Nitrogen > 130 mg/dL (8-23); Calcium 9.7 mg/dL (8.6-10.3); Carbon Dioxide 21 mEq/L (23-29); Chloride 112 mEq/L (98-107); Glucose 245 mg/dL (70-105); Phosphorous 2.9 mg/dL (2.7-4.5); Potassium 4.4 mEq/L (3.5-5.1); Sodium 148 mEq/L (136-145); eGFR For African Americans 26 (> 60); eGFR For Non-African Americans 22 (> 60)
[2019-06-07 04:25] LABS: Anisocytosis 1+ (Not Present); Platelet Estimate Slight Decrease (Normal)
[2019-06-07 04:26] LABS: Macrocytosis Present (Not Present); Microcytosis Present (Not Present)
[2019-06-07] MEDS: Valproic Acid Oral Soln 250 MG/5 ML UDC GTUBE SCH ×3 (06:02→22:47)
[2019-06-07] MEDS: Insulin DETEMIR 100 UNIT/ML X5UNITS SQ SCH ×2 (07:26→19:28)
[2019-06-07] MEDS: Docusate Oral Soln 100 MG/10 ML UDC GTUBE SCH ×2 (07:26→19:28)
[2019-06-07] MEDS: levETIRAcetam 500 MG/5 ML UDC PO SCH ×2 (07:26→19:28)
[2019-06-07] MEDS: Pantoprazole 40 MG VIAL IVP SCH (07:26)
[2019-06-07] MEDS: Chlorhexidine Rinse 15 ML MOUTHWASH MM SCH ×2 (07:26→19:28)
[2019-06-07] MEDS: Haloperidol Oral Conc 10 MG/5 ML UDC GTUBE SCH ×3 (07:26→19:28)
[2019-06-07 14:43] LABS: Potassium 4.2 mEq/L (3.5-5.1)
[2019-06-07] MEDS ORDERED: D5% in 0.45% NACL 1,000 ML IVC SCH (15:00)
[2019-06-08] MEDS: Insulin LISPRO 300 UNITS/3 ML VIAL SQ SCH ×6 (03:28→23:26)
[2019-06-08] MEDS: Artificial Tears SOLN 15 ML BOTTLE BOTH EYES SCH ×3 (03:30→11:02)
[2019-06-08] MEDS: Albuterol 2.5 MG/3 ML NEBULIZER IH SCH ×4 (03:46→21:29)
[2019-06-08] MEDS: Valproic Acid Oral Soln 250 MG/5 ML UDC GTUBE SCH ×3 (05:24→23:22)
[2019-06-08 05:55] LABS: Basophils % 0.4 %; Eosinophils # 0.1 K/mcL (0.0-0.6); Eosinophils % 1.6 %; Hematocrit 28.2 % (35.3-44.9); Hemoglobin 8.6 g/dL (11.5-15.4); Immature Granulocytes % 4.3 % (0-4); Lymphocytes # 2.2 K/mcL (0.6-4.6); Lymphocytes % 28.5 %; Mean Corpuscular HGB Conc 30.5 g/dL (31.6-35.5); Mean Corpuscular Hemoglobin 30.4 pg (28.0-33.3); Mean Corpuscular Volume 99.6 fL (83.0-100.0); Monocytes # 0.8 K/mcL (0.0-1.3); Monocytes % 10.5 %; Neutrophils # 4.2 K/mcL (1.6-8.9); Platelet Count 126 K/mcL (140-400); Red Blood Count 2.83 M/mcL (3.82-4.97); Red Cell Distribution Width 19.4 % (11.5-14.5); Segmented Neutrophils % 54.7 %; White Blood Count 7.7 K/mcL (4.3-11.1)
[2019-06-08 06:01] LABS: VBG Ionized Calcium 1.28 mmol/L (1.15-1.35)
[2019-06-08 06:09] LABS: Magnesium 1.8 mg/dL (1.6-2.6); Phosphorous 2.3 mg/dL (2.7-4.5)
[2019-06-08 06:10] LABS: Blood Urea Nitrogen > 130 mg/dL (8-23); Calcium 9.9 mg/dL (8.6-10.3); Carbon Dioxide 22 mEq/L (23-29); Chloride 111 mEq/L (98-107); Glucose 287 mg/dL (70-105); Potassium 4.3 mEq/L (3.5-5.1); Sodium 147 mEq/L (136-145); eGFR For African Americans 26 (> 60); eGFR For Non-African Americans 22 (> 60)
[2019-06-08] MEDS: Haloperidol Oral Conc 10 MG/5 ML UDC GTUBE SCH ×3 (07:37→20:15)
[2019-06-08] MEDS: Docusate Oral Soln 100 MG/10 ML UDC GTUBE SCH ×2 (07:38→20:15)
[2019-06-08] MEDS: Pantoprazole 40 MG VIAL IVP SCH (07:38)
[2019-06-08] MEDS: Chlorhexidine Rinse 15 ML MOUTHWASH MM SCH (07:38)
[2019-06-08] MEDS: levETIRAcetam 500 MG/5 ML UDC PO SCH ×2 (07:38→20:15)
[2019-06-08] MEDS: Insulin DETEMIR 100 UNIT/ML X5UNITS SQ SCH ×2 (07:43→20:23)
[2019-06-08] MEDS: Acetylcysteine 10% 2 ML INHSOL IH SCH ×4 (07:48→21:30)
[2019-06-08] MEDS ORDERED: Lidocaine Viscous Oral Soln 15 ML SOLUTION ONE (10:05)
[2019-06-09] MEDS: Acetylcysteine 10% 2 ML INHSOL IH SCH ×4 (04:02→22:37)
[2019-06-09] MEDS: Albuterol 2.5 MG/3 ML NEBULIZER IH SCH ×4 (04:02→22:37)
[2019-06-09] MEDS: Insulin LISPRO 300 UNITS/3 ML VIAL SQ SCH ×3 (04:30→12:31)
[2019-06-09 06:04] LABS: Basophils % 0.3 %; Eosinophils # 0.1 K/mcL (0.0-0.6); Eosinophils % 1.6 %; Hematocrit 28.3 % (35.3-44.9); Immature Granulocytes % 3.3 % (0-4); Lymphocytes # 2.2 K/mcL (0.6-4.6); Lymphocytes % 27.7 %; Mean Corpuscular HGB Conc 31.8 g/dL (31.6-35.5); Mean Corpuscular Hemoglobin 30.8 pg (28.0-33.3); Mean Corpuscular Volume 96.9 fL (83.0-100.0); Mean Platelet Volume 10.7 fL (9.4-12.4); Monocytes # 0.7 K/mcL (0.0-1.3); Monocytes % 9.1 %; Neutrophils # 4.6 K/mcL (1.6-8.9); Platelet Count 130 K/mcL (140-400); Red Blood Count 2.92 M/mcL (3.82-4.97); Red Cell Distribution Width 19.5 % (11.5-14.5); White Blood Count 7.9 K/mcL (4.3-11.1)
[2019-06-09 06:23] LABS: Blood Urea Nitrogen > 130 mg/dL (8-23); Calcium 10.2 mg/dL (8.6-10.3); Carbon Dioxide 24 mEq/L (23-29); Chloride 113 mEq/L (98-107); Glucose 191 mg/dL (70-105); Phosphorous 2.8 mg/dL (2.7-4.5); Potassium 4.2 mEq/L (3.5-5.1); Sodium 151 mEq/L (136-145); eGFR For African Americans 25 (> 60); eGFR For Non-African Americans 21 (> 60)
[2019-06-09] MEDS: Docusate Oral Soln 100 MG/10 ML UDC GTUBE SCH (07:51)
[2019-06-09] MEDS: Pantoprazole 40 MG VIAL IVP SCH (07:51)
[2019-06-09] MEDS: Haloperidol Oral Conc 10 MG/5 ML UDC GTUBE SCH (07:52)
[2019-06-09] MEDS: levETIRAcetam 500 MG/5 ML UDC PO SCH (07:52)
[2019-06-09] MEDS: Valproic Acid Oral Soln 250 MG/5 ML UDC GTUBE SCH ×2 (07:52→15:40)
[2019-06-09] MEDS: Insulin DETEMIR 100 UNIT/ML X5UNITS SQ SCH (08:40)
[2019-06-09] MEDS ORDERED: *HR* LORazepam Oral Conc 2 MG/ML PO PRN (15:36)
[2019-06-09] MEDS ORDERED: *HR* LORazepam 2 MG/ML VIAL IVP PRN (16:06)
[2019-06-09] MEDS: Valproic Acid INJ 750 MG in 0.9 % Sodium Chloride 100 ML IVPB SCH (17:44)
[2019-06-09] MEDS ORDERED: Insulin DETEMIR 100 UNIT/ML X5UNITS SQ SCH (21:00)
[2019-06-09] MEDS: Atropine Sulfate 1% 40 DROP/2 ML BOTTLE SL PRN (23:09)
[2019-06-10] MEDS: Valproic Acid INJ 750 MG in 0.9 % Sodium Chloride 100 ML IVPB SCH ×3 (00:22→16:37)
[2019-06-10] MEDS: *HR* LORazepam Oral Conc 2 MG/ML PO PRN ×2 (00:42→04:33)
[2019-06-10] MEDS: Atropine Sulfate 1% 40 DROP/2 ML BOTTLE SL PRN ×2 (02:41→04:36)
[2019-06-10] MEDS: Albuterol 2.5 MG/3 ML NEBULIZER IH SCH ×4 (04:04→21:26)
[2019-06-10] MEDS: Acetylcysteine 10% 2 ML INHSOL IH SCH ×4 (04:05→21:26)
[2019-06-10 06:36] VITALS: BP 119/73
== END 2019-06-10 18:08 | disposition expired | DRG 720 ==
LOC: 2ANU → SUATTDRO 14:40 → 2NNU 17:21 → SUATTDRO 05-26 16:02 → ICNU 05-30 14:28 → 2NNU 05-30 16:08 → ICNU 05-31 07:27 → 2ANU 06-09 16:39
PROVIDERS: ADMIT Internal Medicine; ATTEND Internal Medicine